=== PATIENT | female | born 1985 | race Caucasian/White ===

== ENCOUNTER 2018-01-17 11:56 | Emergency (ER) | payer BC, OTHER ==
[2018-01-17] MEDS ORDERED: cefTRIAXone 1,000 MG in Lidocaine 1% 4 ML IM ONE (12:20)
[2018-01-17] MEDS ORDERED: Sulfamethoxazole/Trimethoprim 800-160 MG Tab PO ONE (12:22)
--- NOTE | 2018-01-17 12:27 | EDM.PDOC ---
ED HPI GENERAL MEDICAL PROBLEM - General Chief Complaint: Lower Extremity Injury/Pain Stated Complaint: RT FOOT HURTS Time Seen by Provider: 01/17/18 11:58 Source of Information: Reports: Patient History Limitations: Reports: No Limitations - History of Present Illness INITIAL COMMENTS - FREE TEXT/NARRATIVE: HISTORY AND PHYSICAL: History of present illness: Patient is a 32-year-old female who presents to the emergency room today with complaints of pain, swelling and erythema to the right foot. Patient was in [place] surfing on Wednesday (01/11/2018) and had stepped on a sea urchin. She states that a nurse friend had removed several of the spines from the bottom of her foot. Several days later she noted that there were still some of the spines inbedded to the bottom of the foot; subsequently another medical friend removed several more spines. She presents today as she feels that she has increased redness and swelling over the past 2 days. She does note that there is a small circular enlarged lymph node to her right groin area. She denies any recent fever, chills, chest pain, shortness of breath. Denies any abdominal pain, nausea, vomiting, diarrhea or constipation. Tdap is up-to-date. Review of systems: As per history of present illness and below otherwise all systems reviewed and negative. Past medical history: As per history of present illness and as reviewed below otherwise noncontributory. Surgical history: As per history of present illness and as reviewed below otherwise noncontributory. Social history: No reported history of drug or alcohol abuse. Family history: As per history of present illness and as reviewed below otherwise noncontributory. Physical exam: General: Well-developed and well-nourished 32-year-old female. Alert and oriented. Nontoxic appearing and in no acute distress. HEENT: Atraumatic, normocephalic, pupils equal and reactive bilaterally, negative for conjunctival pallor or scleral icterus, mucous membranes moist, throat clear, neck supple, nontender, trachea midline. No drooling or trismus noted. No meningeal signs Lungs: Clear to auscultation, breath sounds equal bilaterally, chest nontender. Heart: S1S2, regular rate and rhythm without overt murmur Abdomen: Soft, nondistended, nontender. Negative for masses or hepatosplenomegaly. Negative for costovertebral tenderness. Pelvis: Stable nontender. Genitourinary: Deferred. Rectal: Deferred. Skin: There are multiple puncture sites to the great toe, base of the 1, 2, and 3rd digits. Erythema and soft tissue swelling to the anterior portion of the foot. Strong pedal pulses. Otherwise skin is intact, warm, dry. No lesions or rashes noted. Extremities: Atraumatic, negative for cords or calf pain. Neurovascular unremarkable. Neuro: Awake, alert, oriented. Cranial nerves II through XII unremarkable. Cerebellum unremarkable. Motor and sensory unremarkable throughout. Exam nonfocal. Notes: Vital signs were reviewed by me. She has not had any fever or chills. Patient has been ambulating/wt bearing on the involved lower extremity that has urchin spines. There are several puncture sites that involve the great toe, base of the 1, 2,3 toes (some of these were previously extracted - she is unsure of how many are left in the foot pad). I am unable to feel them when palpating the foot. Will obtain an x-ray and labs at this time. Patient was placed in a gown and her skin was assessed in greater detail. She states she is unable to feel the lymph node she thought she felt in her right thigh. The erythema is localized to the anterior portion of the right foot and does not extend past the ankle. The margins were marked with a surgical marker. I did discuss in great length signs and symptoms that would prompt her to return to the emergency room immediately. She will return tomorrow for reevaluation to make sure she is improving. We did discuss that if she does not improve we would likely have to admit her for IV antibiotics. Her lab work is currently within normal limits. Prescription for Bactrim DS and [place]. We'll see her tomorrow morning for repeat evaluation. I will also refer her to podiatry for further evaluation and management, have her follow up later this week. Agreeable to plan of care. And she denies any further questions or concerns at this time. Diagnostics: CBC, CMP, Blood Culture Therapeutics: Bactrim DS, Rocephin IV, NS 500 Impression: Cellulitis, right foot Plan: 1. Keep the area clean and dry. Rest, ice and elevate 2. Continue to monitor the area for signs of worsening infection as we discussed. Signs and symptoms include but are not limited to: Increased redness , increased swelling, increased pain, fever and chills. 3. Please return tomorrow for reevaluation. As we discussed if you are not improving you may need to be admitted and IV antibiotics. 4. Tylenol and/or ibuprofen as needed for pain management. Please take the prescribed pain medication as directed. This medication may cause drowsiness so do not take it while driving or needing to be functioning outside of the house. 5. Follow[facility] with [facility] and [facility]iatry in the next couple days. Return to the ED as needed and as discussed. Definitive disposition and diagnosis as appropriate pending reevaluation and review of above. Right Foot Pain Score (Numeric/FACES): 8 - Related Data Allergies Allergy/AdvReac Type Severity Reaction Status Date / Time No Known Allergies Allergy Verified 01/17/18 12:21 Home Meds: Home Meds Dextroamphetamine/Amphetamine [Adderall] 30 mg PO BID 01/17/18 [History] Past Medical History Musculoskeletal History: Reports: Fracture - Past Surgical History GI Surgical History: Reports: Bariatric Procedure, Other (See Below) Other GI Surgeries/Procedures: Gastric Sleeve Social & Family History - Family History Family Medical History: Noncontributory - Tobacco Use Smoking Status *Q: Never Smoker Second Hand Smoke Exposure: No - Recreational Drug Use Recreational Drug Use: No Review of Systems - Review of Systems Review Of Systems: ROS reveals no pertinent complaints other than HPI. ED EXAM, GENERAL - Physical Exam Exam: See Below (See dictation) Course - Vital Signs Last Recorded V/S: Last Vital Signs Temp 98.0 F 01/17/18 12:22 Pulse 73 01/17/18 14:08 Resp 18 01/17/18 14:08 BP 142/85 H 01/17/18 14:08 Pulse Ox 100 01/17/18 14:08 - Orders/Labs/Meds Orders: Active Orders 24 hr Category Date Time Status CULTURE BLOOD [BC] Stat Lab 01/17/18 12:42 Received CULTURE BLOOD [BC] Stat Lab 01/17/18 12:52 Received Blood Culture x2 Reflex Set [OM.PC] Stat Oth 01/17/18 12:22 Ordered Labs: Laboratory Tests 01/17/18 01/17/18 Range/Units 12:48 13:26 WBC 7.56 (4.0-11.0) K/uL RBC 4.40 (4.30-5.90) M/uL Hgb 13.3 (12.0-16.0) g/dL Hct 38.8 (36.0-46.0) % MCV 88.2 (80.0-98.0) fL MCH 30.2 (27.0-32.0) pg MCHC 34.3 (31.0-37.0) g/dL RDW Std Deviation 40.1 (28.0-62.0) fl RDW Coeff of Myron 12 (11.0-15.0) % Plt Count 221 (150-400) K/uL MPV 10.60 (7.40-12.00) fL Neut % (Auto) 66.4 (48.0-80.0) % Lymph % (Auto) 17.3 (16.0-40.0) % [place] % (Auto) 13.1 (0.0-15.0) % Eos % (Auto) 2.4 (0.0-7.0) % Baso % (Auto) 0.8 (0.0-1.5) % Neut # (Auto) 5.0 (1.4-5.7) K/uL Lymph # (Auto) 1.3 (0.6-2.4) K/uL [place] # (Auto) 1.0 H (0.0-0.8) K/uL Eos # (Auto) 0.2 (0.0-0.7) K/uL Baso # (Auto) 0.1 (0.0-0.1) K/uL Nucleated RBC % 0.0 /100WBC Nucleated RBCs # 0 K/uL Sodium 140 (136-145) mmol/L Potassium 3.8 (3.5-5.1) mmol/L Chloride 106 (98-107) mmol/L Carbon Dioxide 25.4 (21.0-32.0) mmol/L BUN 8 (7.0-18.0) mg/dL Creatinine 0.9 (0.6-1.0) mg/dL Est Cr Clr Drug Dosing 94.65 mL/min Estimated GFR (MDRD) > 60.0 ml/min Glucose 92 (74-106) mg/dL Calcium 8.8 (8.5-10.1) mg/dL Total Bilirubin 0.3 (0.2-1.0) mg/dL AST 21 (15-37) IU/L ALT 29 (14-63) IU/L Alkaline Phosphatase 48 (46-116) U/L Total Protein 7.1 (6.4-8.2) g/dL Albumin 3.7 (3.4-5.0) g/dL Globulin 3.4 (2.0-3.5) g/dL Albumin/Globulin Ratio 1.1 L (1.3-2.8) Meds: Medications Discontinued Medications Generic Name Dose Route Start Last Admin Trade Name Freq PRN Reason Stop Dose Admin Ceftriaxone Sodium 1,000 mg/ 4 mls @ 4 mls/sec 01/17/18 12:20 01/17/18 13:16 Lidocaine HCl IM 01/17/18 12:21 Not Given ONETIME ONE Vancomycin HCl 1 gm/ Sodium 250 mls @ 250 mls/hr 01/17/18 12:20 01/17/18 13: 18 Chloride IV 01/17/18 13:19 Not Given ONETIME ONE Ceftriaxone Sodium/Dextrose 1 50 mls @ 100 mls/hr 01/17/18 13:01 01/17/18 13: 08 gm/ Premix IV 01/17/18 13:30 100 mls/hr ONETIME ONE Administration Sodium Chloride 500 mls @ 999 mls/hr 01/17/18 13:15 01/17/18 13:08 Normal Saline IV 999 mls/hr STAT ROMIE Administration Trimethoprim/Sulfamethoxazole 1 tab 01/17/18 12:22 01/17/18 13:08 Septra Ds PO 01/17/18 12:23 1 tab ONETIME ONE Administration Departure - Departure Time of Disposition: 16:15 Disposition: Home, Self-Care 01 Clinical Impression: Cellulitis Qualifiers: Site of cellulitis: extremity Site of cellulitis of extremity: lower extremity Laterality: right Qualified Code(s): L03.115 - Cellulitis of right lower limb - Discharge Information Instructions: Cellulitis, Adult, [id number] Referrals: Nicolasa Vasquez NP [Primary Care Provider] - Forms: ED Department Discharge Additional Instructions: The following information is given to patients seen in the emergency department who are being discharged to home. This information is to outline your options for follow-up care. We provide all patients seen in our emergency department with a follow-up referral. The need for follow-up, as well as the timing and circumstances, are variable depending upon the specifics of your emergency department visit. If you don't have a primary care physician on staff, we will provide you with a referral. We always advise you to contact your personal physician following an emergency department visit to inform them of the circumstance of the visit and for follow-up with them and/or the need for any referrals to a consulting specialist. The emergency department will also refer you to a specialist when appropriate. This referral assures that you have the opportunity for follow-up care with a specialist. All of these measure are taken in an effort to provide you with optimal care, which includes your follow-up. Under all circumstances we always encourage you to contact your private physician who remains a resource for coordinating your care. When calling for follow-up care, please make the office aware that this follow-up is from your recent emergency room visit. If for any reason you are refused follow-up, please contact the [facility] Emergency Department at and asked to speak to the emergency department charge nurse. [facility] [address] [place] [id number] [address] 1. Keep the area clean and dry. Rest, ice and elevate 2. Continue to monitor the area for signs of worsening infection as we discussed. Signs and symptoms include but are not limited to: Increased redness , increased swelling, increased pain, fever and chills. 3. Please return tomorrow for reevaluation. As we discussed if you are not improving you may need to be admitted and IV antibiotics. 4. Tylenol and/or ibuprofen as needed for pain management. Please take the prescribed pain medication as directed. This medication may cause drowsiness so do not take it while driving or needing to be functioning outside of the house. 5. Follow-up with your [facility] doctor and podiatry in the next couple days. Return to the ED as needed and as discussed. - My Orders Last 24 Hours: My Active Orders 01/17/18 12:22 Blood Culture x2 Reflex Set [OM.PC] Stat 01/17/18 12:42 CULTURE BLOOD [BC] Stat 01/17/18 12:52 CULTURE BLOOD [BC] Stat - Assessment/Plan Last 24 Hours: My Active Orders 01/17/18 12:22 Blood Culture x2 Reflex Set [OM.PC] Stat 01/17/18 12:42 CULTURE BLOOD [BC] Stat 01/17/18 12:52 CULTURE BLOOD [BC] Stat
[2018-01-17] MEDS ORDERED: cefTRIAXone 1 GM in Premix Bag 1 BAG IV ONE (13:01)
[2018-01-17] MEDS ORDERED: Sodium Chloride 0.9% 500 ML IV SCH (13:15)
--- NOTE | 2018-01-17 13:30 | CR ---
EXAMINATION: Right foot HISTORY: Pain COMPARISON: None TECHNIQUE: 2 views FINDINGS/IMPRESSION: There is no acute osseous abnormality, dislocation, or fracture. Small linear de nsities project near the first and second digits with mild adjacent soft tissue swelling. Bone minera lization and joint spaces are otherwise preserved.
[2018-01-17 13:58] LABS: CHLORIDE,CL 106 mmol/L (98-107); SODIUM,NA 140 mmol/L (136-145)
== END 2018-01-17 14:10 | disposition home or self-care (01) ==
LOC: EDBD → MW.ED 11:56
DX: L03.115 Cellulitis of right lower limb (principal)
CPT/HCPCS: 36415; 73620; 80053; 85025; 87040; 96365; 99283; A9270; J0696; J7040

== ENCOUNTER 2018-01-18 13:44 | Observation (INO) | payer BC, OTHER ==
[2018-01-18] MEDS ORDERED: Sodium Chloride 0.9% 2.5 ML Syringe FLUSH PRN (14:04)
[2018-01-18] MEDS ORDERED: Sodium Chloride 0.9% 10 ML Syringe FLUSH PRN (14:04)
--- NOTE | 2018-01-18 14:04 | EDM.PDOC ---
ED HPI GENERAL MEDICAL PROBLEM - General Chief Complaint: Skin Complaint Stated Complaint: RIGHT FOOT PAIN Time Seen by Provider: 01/18/18 13:46 Source of Information: Reports: Patient History Limitations: Reports: No Limitations - History of Present Illness INITIAL COMMENTS - FREE TEXT/NARRATIVE: History of present illness: []Patient was in [place] on the January 11 and stepped on a see her chin. He was seen in the ED yesterday for cellulitis of her foot x-ray showed 2 areas of small spines from the chin embedded in her foot with no palpable foreign bodies at the skin surface. She was put on Rocephin and put on Bactrim and is here for follow-up. She states that the redness in her foot is deeper red and now spreading to the bottom of her foot. Review of systems: As per history of present illness and below otherwise all systems reviewed and negative. Past medical history: As per history of present illness and as reviewed below otherwise noncontributory. Surgical history: As per history of present illness and as reviewed below otherwise noncontributory. Social history: No reported history of drug or alcohol abuse. Family history: As per history of present illness and as reviewed below otherwise noncontributory. Physical exam: General: Well developed, well nourished in NAD HEENT: Atraumatic, normocephalic, pupils reactive, negative for conjunctival pallor or scleral icterus, mucous membranes moist, throat clear, neck supple, nontender, trachea midline. Lungs: Clear to auscultation, breath sounds equal bilaterally, chest nontender. Heart: S1S2, regular, negative for clicks, rubs, or JVD. Abdomen: Soft, nondistended, nontender. Negative for masses or hepatosplenomegaly. Negative for costovertebral tenderness. Pelvis: Stable nontender. Genitourinary: Deferred. Rectal: Deferred. Extremities: Atraumatic, negative for cords or calf pain. Neurovascular unremarkable. Neuro: Awake, alert, oriented. Cranial nerves II through XII unremarkable. Cerebellum unremarkable. Motor and sensory unremarkable throughout. Exam nonfocal. Diagnostics: []Yesterday patient had x-rays, blood cultures and labs done. CBC today is unchanged Therapeutics: []Patient was given IV Zosyn in the ED Impression: []Cellulitis right foot secondary to stepping on a sea urchin, failed outpatient therapy. Retained foreign bodies in left foot Plan: []Admit for IV antibiotics Definitive disposition and diagnosis as appropriate pending reevaluation and review of above. 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: None Musculoskeletal History: Reports: Fracture Neurological History: Reports: None Psychiatric History: Reports: None Endocrine/Metabolic History: Reports: None Hematologic History: Reports: None Immunologic History: Reports: None Oncologic (Cancer) History: Reports: None Dermatologic History: Reports: None - Infectious Disease History Infectious Disease History: Reports: Chicken Pox - Past Surgical History Head Surgeries/Procedures: Reports: None HEENT Surgical History: Reports: None Cardiovascular Surgical History: Reports: None Respiratory Surgical History: Reports: None GI Surgical History: Reports: Bariatric Procedure, Other (See Below) Other GI Surgeries/Procedures: Gastric Sleeve Female Surgical History: Reports: None Endocrine Surgical History: Reports: None Neurological Surgical History: Reports: None Musculoskeletal Surgical History: Reports: None Oncologic Surgical History: Reports: None Dermatological Surgical History: Reports: None Social & Family History - Family History Family Medical History: Noncontributory - Tobacco Use Smoking Status *Q: Never Smoker Second Hand Smoke Exposure: No - Caffeine Use Caffeine Use: Reports: None - Recreational Drug Use Recreational Drug Use: No ED ROS GENERAL - Review of Systems Review Of Systems: See Below (See history of present illness) ED EXAM, SKIN/RASH Exam: See Below (See history of present illness) Course - Vital Signs Last Recorded V/S: Last Vital Signs Temp 97.5 F 01/18/18 15:40 Pulse 71 01/18/18 15:40 Resp 18 01/18/18 15:40 BP 126/79 01/18/18 15:40 Pulse Ox 100 01/18/18 15:40 - Orders/Labs/Meds Orders: Active Orders 24 hr Category Date Time Status Patient Status [ADT] Stat ADT 01/18/18 14:21 Active Sodium Chloride 0.9% [Saline Flush] Med 01/18/18 14:04 Active 10 ml FLUSH ASDIRECTED PRN Sodium Chloride 0.9% [Saline Flush] Med 01/18/18 14:04 Active 2.5 ml FLUSH ASDIRECTED PRN Saline Lock Insert [OM.PC] Stat Oth 01/18/18 14:04 Ordered Medication Orders Acetaminophen (Tylenol) 650 mg PO Q4H PRN PRN Reason: Pain Lactated Ringer's (Ringers, Lactated) 1,000 mls @ 125 mls/hr IV ASDIRECTED ROMIE Last Admin: 01/18/18 16:54 Dose: 125 mls/hr Clindamycin Phosphate 600 mg/ (Premix) 50 mls @ 92.593 mls/hr IV Q8H ROMIE Doxycycline Hyclate 100 mg/ (Sodium Chloride) 100 mls @ 100 mls/hr IV Q12H ROMIE Levofloxacin/Dextrose 750 mg/ (Premix) 150 mls @ 100 mls/hr IV Q24H ROMIE Morphine Sulfate (Morphine) 2 mg IVPUSH Q2H PRN PRN Reason: Pain Ondansetron HCl (Zofran) 4 mg IVPUSH Q4H PRN PRN Reason: Nausea Oxycodone HCl (Oxycodone) 5 mg PO Q4H PRN PRN Reason: Pain Sodium Chloride (Saline Flush) 10 ml FLUSH ASDIRECTED PRN PRN Reason: Keep Vein Open Sodium Chloride (Saline Flush) 2.5 ml FLUSH ASDIRECTED PRN PRN Reason: Keep Vein Open Meds: Medications Generic Name Dose Route Start Last Admin Trade Name Freq PRN Reason Stop Dose Admin Acetaminophen 650 mg 01/18/18 16:24 Tylenol PO Q4H PRN Pain Lactated Ringer's 1,000 mls @ 125 mls/hr 01/18/18 16:00 01/18/18 16:54 Ringers, Lactated IV 125 mls/hr ASDIRECTED ROMIE Administration Clindamycin Phosphate 600 mg/ 50 mls @ 92.593 mls/hr 01/18/18 16:30 Premix IV Q8H ROMIE Doxycycline Hyclate 100 mg/ 100 mls @ 100 mls/hr 01/18/18 18:30 Sodium Chloride IV Q12H ROMIE Levofloxacin/Dextrose 750 mg/ 150 mls @ 100 mls/hr 01/18/18 17:30 Premix IV Q24H ROMIE Morphine Sulfate 2 mg 01/18/18 16:46 Morphine IVPUSH Q2H PRN Pain Ondansetron HCl 4 mg 01/18/18 15:29 Zofran IVPUSH Q4H PRN Nausea Oxycodone HCl 5 mg 01/18/18 15:58 Oxycodone PO Q4H PRN Pain Sodium Chloride 10 ml 01/18/18 14:04 Saline Flush FLUSH ASDIRECTED PRN Keep Vein Open Sodium Chloride 2.5 ml 01/18/18 14:04 Saline Flush FLUSH ASDIRECTED PRN Keep Vein Open Discontinued Medications Generic Name Dose Route Start Last Admin Trade Name Freq PRN Reason Stop Dose Admin Hydrocodone Bitart/Acetaminophen 1 - 2 tab 01/18/18 15:29 [place] 325-5 Mg PO Q4H PRN Pain (moderate 4-6) Piperacillin Sod/Tazobactam 100 mls @ 100 mls/hr 01/18/18 14:21 01/18/18 14: 40 Sod 4.5 gm/ Sodium Chloride IV 01/18/18 15:20 100 mls/hr ONETIME ONE Administration Ketorolac Tromethamine 30 mg 01/18/18 14:58 01/18/18 15:05 Toradol IVPUSH 01/18/18 14:59 30 mg ONETIME ONE Administration Lorazepam 0.25 mg 01/18/18 16:46 Ativan IVPUSH 01/18/18 16:47 ONETIME ONE Departure - Departure Time of Disposition: 17:08 Disposition: Refer to Observation Condition: Good Clinical Impression: Cellulitis of right foot - Discharge Information - My Orders Last 24 Hours: My Active Orders 01/18/18 14:04 Sodium Chloride 0.9% [Saline Flush] 10 ml FLUSH ASDIRECTED PRN Sodium Chloride 0.9% [Saline Flush] 2.5 ml FLUSH ASDIRECTED PRN Saline Lock Insert [OM.PC] Stat 01/18/18 14:21 Patient Status [ADT] Stat - Assessment/Plan Last 24 Hours: My Active Orders 01/18/18 14:04 Sodium Chloride 0.9% [Saline Flush] 10 ml FLUSH ASDIRECTED PRN Sodium Chloride 0.9% [Saline Flush] 2.5 ml FLUSH ASDIRECTED PRN Saline Lock Insert [OM.PC] Stat 01/18/18 14:21 Patient Status [ADT] Stat
[2018-01-18] MEDS ORDERED: Piperacillin/Tazobactam 4.5 GM in Sodium Chloride 0.9% 100 ML IV ONE (14:21)
[2018-01-18] MEDS ORDERED: Ketorolac 30 MG/ML SDV IVPUSH ONE (14:58)
[2018-01-18] MEDS ORDERED: Acetaminophen/HYDROcodone 325-5 MG Tab PO PRN (15:29)
--- NOTE | 2018-01-18 15:29 | PCM.HP ---
H&P History of Present Illness - General Date of Service: 01/18/18 Admit Problem/Dx: Admission Diagnosis/Problem Admission Diagnosis/Problem Cellulitis Source of Information: Patient History Limitations: Reports: No Limitations - History of Present Illness Initial Comments - Free Text/Narative: This32 year old female with little significant pmh presented to the ED today when R foot cellulitis worsened. She reports she was in [place] last week and on January 11 she was surfing. She fell off the board and stepped on something sharp. She felt it was a rock and kept on with her day, until she kept having pain with ambulation. A guide there looked at her foot and realized she had stepped on a sea urchin and had multiple spines protruding from her foot. He removed most of the surface spines. A few days later, she had more spines which were visible and a friend who is a nurse removed these. Of note, patient learned later that the area she was swimming in had recently had a contamination with buckle sewer machine water, she reports the water appeared clean. Yesterday she noticed worsening pain and redness and came to the ED. She received a R foot Xray which showed small linear densities projecting near the first and second toes with mild adjacent soft tissue swelling. She was given Rocephin IV and sent home with Bactrim and [place]. She reports the pain and swelling worsened overnight, but the redness nearly remained the same until this afternoon. [facility] ED for further evaluation. She denies fevers, chills, chest pain or palpitations. She reports some shortness of breath with anxiety, but feels ok now. She denies abdominal pain or urinary symptoms. She did report some diarrhea, which has now nearly resolved. She quit smoking 4 years ago, denies recreational drug use and social alcohol use. In the ED No leukocytosis noted, BUN 8 and Cr 1.1. She was given Zosyn IV in the ED as well as Toradol for pain. Upon admission I spoke with Dr Hoang, Infectious disease at [facility] regarding cellulitis secondary to sea urchin puncture. He agreed with suggested treatment for secondary skin infection with Clindamycin and Levaquin along with Doxycycline due to sea water exposure. He also recommended I&D to remove retained spines and clean wound bed extensively. He also recommended to hold onto wound cultures obtained in surgery for up to 2 weeks to rule out a Mycobacterium which grows slowly. I then spoke with Dr Ferreira regarding possible I&D as per recommended by Dr Hoang. He will see patient and plans for I&D this evening. She double checked her Tdap and she received this in 2014. right foot Pain Score (Numeric/FACES): 3 - Related Data Allergies/Adverse Reactions: Allergies Allergy/AdvReac Type Severity Reaction Status Date / Time No Known Allergies Allergy Verified 01/18/18 13:54 Home Medications: Home Meds Dextroamphetamine/Amphetamine [Adderall] 30 mg PO BID 01/17/18 [History] Past Medical History HEENT History: Reports: None Cardiovascular History: Reports: None. Denies: CAD, High Cholesterol, Hypertension, [place] Respiratory History: Reports: None. Denies: Asthma, COPD Gastrointestinal History: Reports: None. Denies: GERD, GI Bleed Genitourinary History: Reports: None. Denies: Acute Renal Failure SHOW DOG TRAINER History: Reports: None Musculoskeletal History: Reports: Fracture Neurological History: Reports: None. Denies: CVA, TIA Psychiatric History: Reports: Anxiety. Denies: Depression Endocrine/Metabolic History: Reports: None. Denies: Diabetes, Type II Hematologic History: Reports: None Immunologic History: Reports: None Oncologic (Cancer) History: Reports: None Dermatologic History: Reports: None - Infectious Disease History Infectious Disease History: Reports: Chicken Pox - Past Surgical History Head Surgeries/Procedures: Reports: None HEENT Surgical History: Reports: None Cardiovascular Surgical History: Reports: None Respiratory Surgical History: Reports: None GI Surgical History: Reports: Bariatric Procedure, Other (See Below) Other GI Surgeries/Procedures: Gastric Sleeve Female Surgical History: Reports: None Endocrine Surgical History: Reports: None Neurological Surgical History: Reports: None Musculoskeletal Surgical History: Reports: None Oncologic Surgical History: Reports: None Dermatological Surgical History: Reports: None Social & Family History - Family History Family Medical History: Noncontributory - Tobacco Use Smoking Status *Q: Never Smoker Second Hand Smoke Exposure: No - Caffeine Use Caffeine Use: Reports: None - Alcohol Use Alcohol Use Frequency: Socially - Recreational Drug Use Recreational Drug Use: No - Living Situation & Occupation Living situation: Reports: Occupation: Employed H&P Review of Systems - Review of Systems: Review Of Systems: See Below General: Reports: No Symptoms. Denies: Fever, Chills, Malaise, Weakness HEENT: Reports: No Symptoms. Denies: Headaches, Sinus Congestion, Sore Throat, Visual Changes Pulmonary: Reports: No Symptoms. Denies: Shortness of Breath Cardiovascular: Reports: No Symptoms. Denies: Chest Pain, Palpitations, Edema Gastrointestinal: Reports: No Symptoms. Denies: Abdominal Pain, Black Stool, Bloody Stool, Hematochezia, Nausea, Vomiting Genitourinary: Reports: No Symptoms. Denies: Dysuria, Frequency, Burning Musculoskeletal: Reports: Foot Pain (R foot pain, tolerable currently) Skin: Reports: Wound (R plantar surface of foot with redness extending to dorsum of R foot.) Neurological: Reports: No Symptoms Hematologic/Lymphatic: Reports: No Symptoms Immunologic: Reports: No Symptoms Exam - Exam Exam: See Below - Vital Signs Vital Signs: Last Vital Signs Temp 98.8 F 01/18/18 15:21 Pulse 77 01/18/18 15:21 Resp 18 01/18/18 15:21 BP 111/73 01/18/18 15:21 Pulse Ox 100 01/18/18 15:21 Weight: 68.039 kg - Exam General: Alert, Oriented, Cooperative HEENT: Conjunctiva Clear, Mucosa Moist & [place], Pupils Equal Neck: Supple Lungs: Clear to Auscultation, Normal Respiratory Effort Cardiovascular: Regular Rate, Regular Rhythm, Normal S1, Normal S2. No: Systolic Murmur GI/Abdominal Exam: Normal Bowel Sounds, Soft, Non-Tender, No Distention Back Exam: Normal Inspection, Full Range of Motion Extremities: Normal Range of Motion, Non-Tender, Pedal Edema (R foot) Skin: Wound (Multiple puncture wounds to plantar surface of R foot, with edema and erythema to pad of foot, most noticiely in between great toe and second toe. No extreme tenderness noted with palpation, but recently receive pain medication. Erythema slightly extending skin marking from 6/25 laterally and medially. non pitting edema +1 to entire R foot.) Neuro Extensive - Mental Status: Alert, Oriented x3, Normal Mood/Affect Neuro Extensive - Motor, Sensory, Reflexes: CN II-XII Intact Psychiatric: Alert, Normal Affect, Normal Mood - Patient Data Lab Results Last 24 hrs: Laboratory Results - last 24 hr 01/18/18 Range/Units 14:40 WBC 7.32 (4.0-11.0) K/uL RBC 4.36 (4.30-5.90) M/uL Hgb 13.1 (12.0-16.0) g/dL Hct 38.4 (36.0-46.0) % MCV 88.1 (80.0-98.0) fL MCH 30.0 (27.0-32.0) pg MCHC 34.1 (31.0-37.0) g/dL RDW Std Deviation 39.9 (28.0-62.0) fl RDW Coeff of Myron 12 (11.0-15.0) % Plt Count 243 (150-400) K/uL MPV 10.10 (7.40-12.00) fL Neut % (Auto) 64.0 (48.0-80.0) % Lymph % (Auto) 20.1 (16.0-40.0) % [place] % (Auto) 11.2 (0.0-15.0) % Eos % (Auto) 3.7 (0.0-7.0) % Baso % (Auto) 1.0 (0.0-1.5) % Neut # (Auto) 4.7 (1.4-5.7) K/uL Lymph # (Auto) 1.5 (0.6-2.4) K/uL [place] # (Auto) 0.8 (0.0-0.8) K/uL Eos # (Auto) 0.3 (0.0-0.7) K/uL Baso # (Auto) 0.1 (0.0-0.1) K/uL Nucleated RBC % 0.0 /100WBC Nucleated RBCs # 0 K/uL Result Diagrams: 01/18/18 14:40 01/18/18 14:40 - Problem List (1) Cellulitis SNOMED Code(s): 817039543 ICD Code: L03.90 - CELLULITIS, UNSPECIFIED Status: Acute Current Visit: No Qualifiers: Site of cellulitis: extremity Site of cellulitis of extremity: lower extremity Laterality: right Qualified Code(s): L03.115 - Cellulitis of right lower limb Problem List Initiated/Reviewed/Updated: Yes Orders Last 24hrs: Active Orders 24 hr Category Date Time Status Patient Status [ADT] Stat ADT 01/18/18 14:21 Active BMP [BASIC METABOLIC PANEL,BMP] [CHEM] Routine Lab 01/18/18 15:28 Ordered Sodium Chloride 0.9% [Saline Flush] Med 01/18/18 14:04 Active 10 ml FLUSH ASDIRECTED PRN Sodium Chloride 0.9% [Saline Flush] Med 01/18/18 14:04 Active 2.5 ml FLUSH ASDIRECTED PRN Saline Lock Insert [OM.PC] Stat Oth 01/18/18 14:04 Ordered Medication Orders Sodium Chloride (Saline Flush) 10 ml FLUSH ASDIRECTED PRN PRN Reason: Keep Vein Open Sodium Chloride (Saline Flush) 2.5 ml FLUSH ASDIRECTED PRN PRN Reason: Keep Vein Open Assessment/Plan Comment:: This 32 year old female admitted for cellulitis to R foot secondary to sea urchin puncture. 1. Cellulitis to R foot: With retained sea urchin spines to Great toe and second toe. As noted in HPI, consulted over the phone with Dr Hoang, Infectious disease, who agrees with treatment of Clindamycin, Levaquin and Doxycycline. Dr Ferreira, podiatry consulted for I&D and removal of retained spines. To OR this evening. patient and at bedside aware and are agreeable. Patient very anxious regarding OR, asking for something to calm her nerves. Will give Ativan 0.25mg IV and monitor. Has not eaten since around 1145 this afternoon. BC from 01/17 ED visit so far are negative x [address] Ferreira to obtain cultures from OR. Puncture sites have no drainage to culture. She is to keep R foot elevated as much as possible. She is of appropriate surgical risk for I&D this evening. VTE prophylaxis: SCDs Dispo: 1-3 days pending improvement.
[2018-01-18] MEDS ORDERED: LORazepam 2 MG/ML SDV IVPUSH ONE (16:46)
[2018-01-18] MEDS: Lactated Ringers 1,000 ML IV SCH ×2 (16:54→22:00)
[2018-01-18] MEDS: Clindamycin Phosphate in D5W 600 MG in Premix Bag 1 BAG IV SCH ×4 (17:11→23:54)
[2018-01-18] MEDS: Doxycycline 100 MG in Sodium Chloride 0.9% 100 ML IV SCH (17:33)
[2018-01-18] MEDS ORDERED: Midazolam 1 MG/ML 2 ML SDV ONE (18:13)
[2018-01-18] MEDS ORDERED: Lidocaine 2% 5 ML SDV ONE (18:13)
[2018-01-18] MEDS ORDERED: Propofol 200 MG/20 ML SDV ONE (18:13)
[2018-01-18] MEDS ORDERED: Ondansetron 4 MG/2 ML SDV ONE (18:13)
[2018-01-18] MEDS ORDERED: fentaNYL 250 MCG/5 ML SDV ONE (18:14)
--- NOTE | 2018-01-18 18:34 | PCM.PREANE ---
Preanesthetic Assessment - Procedure Proposed Procedure: I&D of R) foot - Physical Assessment NPO Status Date: 01/18/18 NPO Status Time: 11:45 O2 Sat by Pulse Oximetry: 100 Respiratory Rate: 18 Vital Signs: Last Vital Signs Temp 36.4 C 01/18/18 15:40 Pulse 71 01/18/18 15:40 Resp 18 01/18/18 15:40 BP 126/79 01/18/18 15:40 Pulse Ox 100 01/18/18 15:40 Height: 5 ft 9 in Weight: 68.039 kg ASA Class: 1E Mental Status: Alert & Oriented x3 Airway Class: Mallampati = 1 Dentition: Reports: Normal Dentition Thyro-Mental Finger Breadths: 3 Mouth Opening Finger Breadths: 3 ROM/Head Extension: Full - Lab Values: Laboratory Last Values WBC 7.32 K/uL (4.0-11.0) 01/18/18 14:40 RBC 4.36 M/uL (4.30-5.90) 01/18/18 14:40 Hgb 13.1 g/dL (12.0-16.0) 01/18/18 14:40 Hct 38.4 % (36.0-46.0) 01/18/18 14:40 MCV 88.1 fL (80.0-98.0) 01/18/18 14:40 MCH 30.0 pg (27.0-32.0) 01/18/18 14:40 MCHC 34.1 g/dL (31.0-37.0) 01/18/18 14:40 RDW Std Deviation 39.9 fl (28.0-62.0) 01/18/18 14:40 RDW Coeff of Myron 12 % (11.0-15.0) 01/18/18 14:40 Plt Count 243 K/uL (150-400) 01/18/18 14:40 MPV 10.10 fL (7.40-12.00) 01/18/18 14:40 Neut % (Auto) 64.0 % (48.0-80.0) 01/18/18 14:40 Lymph % (Auto) 20.1 % (16.0-40.0) 01/18/18 14:40 [place] % (Auto) 11.2 % (0.0-15.0) 01/18/18 14:40 Eos % (Auto) 3.7 % (0.0-7.0) 01/18/18 14:40 Baso % (Auto) 1.0 % (0.0-1.5) 01/18/18 14:40 Neut # (Auto) 4.7 K/uL (1.4-5.7) 01/18/18 14:40 Lymph # (Auto) 1.5 K/uL (0.6-2.4) 01/18/18 14:40 [place] # (Auto) 0.8 K/uL (0.0-0.8) 01/18/18 14:40 Eos # (Auto) 0.3 K/uL (0.0-0.7) 01/18/18 14:40 Baso # (Auto) 0.1 K/uL (0.0-0.1) 01/18/18 14:40 Nucleated RBC % 0.0 /100WBC 01/18/18 14:40 Nucleated RBCs # 0 K/uL 01/18/18 14:40 Sodium 141 mmol/L (136-145) 01/18/18 14:40 Potassium 3.8 mmol/L (3.5-5.1) 01/18/18 14:40 Chloride 106 mmol/L (98-107) 01/18/18 14:40 Carbon Dioxide 23.2 mmol/L (21.0-32.0) 01/18/18 14:40 BUN 8 mg/dL (7.0-18.0) 01/18/18 14:40 Creatinine 1.1 mg/dL (0.6-1.0) H 01/18/18 14:40 Est Cr Clr Drug Dosing 77.44 mL/min 01/18/18 14:40 Estimated GFR (MDRD) 57.9 ml/min 01/18/18 14:40 Glucose 96 mg/dL (74-106) 01/18/18 14:40 Calcium 9.0 mg/dL (8.5-10.1) 01/18/18 14:40 HCG, Qual NEGATIVE (NEG) 01/18/18 16:22 - Allergies Allergies/Adverse Reactions: Allergies Allergy/AdvReac Type Severity Reaction Status Date / Time No Known Allergies Allergy Verified 01/18/18 13:54 - Blood Blood Available: No - Acknowledgements Anesthesia Type Planned: General Anesthesia Pt an Appropriate Candidate for the Planned Anesthesia: Yes Alternatives and Risks of Anesthesia Discussed w Pt/Guardian: Yes Pt/Guardian Understands and Agrees with Anesthesia Plan: Yes PreAnesthesia Questionnaire HEENT History: Reports: None Cardiovascular History: Reports: None Respiratory History: Reports: None Gastrointestinal History: Reports: None Genitourinary History: Reports: None TEST RIDER History: Reports: None Musculoskeletal History: Reports: Fracture Neurological History: Reports: None Psychiatric History: Reports: None Endocrine/Metabolic History: Reports: None Hematologic History: Reports: None Immunologic History: Reports: None Oncologic (Cancer) History: Reports: None Dermatologic History: Reports: None - Infectious Disease History Infectious Disease History: Reports: Chicken Pox - Past Surgical History Head Surgeries/Procedures: Reports: None HEENT Surgical History: Reports: None Cardiovascular Surgical History: Reports: None Respiratory Surgical History: Reports: None GI Surgical History: Reports: Bariatric Procedure, Other (See Below) Other GI Surgeries/Procedures: Gastric Sleeve Female Surgical History: Reports: None Endocrine Surgical History: Reports: None Neurological Surgical History: Reports: None Musculoskeletal Surgical History: Reports: None Oncologic Surgical History: Reports: None Dermatological Surgical History: Reports: None - SUBSTANCE USE Smoking Status *Q: Never Smoker Second Hand Smoke Exposure: No Recreational Drug Use History: No - HOME MEDS Home Medications: Home Meds Dextroamphetamine/Amphetamine [Adderall] 30 mg PO BID 01/17/18 [History] - CURRENT (IN HOUSE) MEDS Current Meds: Current Medications Acetaminophen (Tylenol) 650 mg PO Q4H PRN PRN Reason: Pain Lactated Ringer's (Ringers, Lactated) 1,000 mls @ 125 mls/hr IV ASDIRECTED [facility] Last Admin: 01/18/18 16:54 Dose: 125 mls/hr Clindamycin Phosphate 600 mg/ (Premix) 50 mls @ 92.593 mls/hr IV Q8H [facility] Last Admin: 01/18/18 17:11 Dose: 92.593 mls/hr Doxycycline Hyclate 100 mg/ (Sodium Chloride) 100 mls @ 100 mls/hr IV Q12H [facility] Last Admin: 01/18/18 17:33 Dose: 100 mls/hr Levofloxacin/Dextrose 750 mg/ (Premix) 150 mls @ 100 mls/hr IV Q24H [facility] Morphine Sulfate (Morphine) 2 mg IVPUSH Q2H PRN PRN Reason: Pain Ondansetron HCl (Zofran) 4 mg IVPUSH Q4H PRN PRN Reason: Nausea Oxycodone HCl (Oxycodone) 5 mg PO Q4H PRN PRN Reason: Pain Sodium Chloride (Saline Flush) 10 ml FLUSH ASDIRECTED PRN PRN Reason: Keep Vein Open Sodium Chloride (Saline Flush) 2.5 ml FLUSH ASDIRECTED PRN PRN Reason: Keep Vein Open Discontinued Medications Hydrocodone Bitart/Acetaminophen ([place] 325-5 Mg) 1 - 2 tab PO Q4H PRN PRN Reason: Pain (moderate 4-6) Fentanyl (Sublimaze) Confirm Administered Dose 250 mcg .ROUTE .STK-MED ONE Stop: 01/18/18 18:15 Piperacillin Sod/Tazobactam (Sod 4.5 gm/ Sodium Chloride) 100 mls @ 100 mls/hr IV ONETIME ONE Stop: 01/18/18 15:20 Last Admin: 01/18/18 14:40 Dose: 100 mls/hr Ketorolac Tromethamine (Toradol) 30 mg IVPUSH ONETIME ONE Stop: 01/18/18 14:59 Last Admin: 01/18/18 15:05 Dose: 30 mg Lidocaine (Xylocaine-Mpf 2%) Confirm Administered Dose 5 ml .ROUTE .STK-MED ONE Stop: 01/18/18 18:14 Lorazepam (Ativan) 0.25 mg IVPUSH ONETIME ONE Stop: 01/18/18 16:47 Last Admin: 01/18/18 17:59 Dose: 0.25 mg Midazolam HCl (Versed 1 Mg/Ml) Confirm Administered Dose 2 mg .ROUTE .STK-MED ONE Stop: 01/18/18 18:14 Ondansetron HCl (Zofran) Confirm Administered Dose 4 mg .ROUTE .STK-MED ONE Stop: 01/18/18 18:14 Propofol (Diprivan 20 Ml) Confirm Administered Dose 200 mg .ROUTE .STK-MED ONE Stop: 01/18/18 18:14
[2018-01-18] MEDS ORDERED: Bupivacaine 0.5% 10 ML SDV ONE (18:39)
--- NOTE | 2018-01-18 18:44 | PCM.CONS ---
H&P History of Present Illness - General Date of Service: 01/18/18 Admit Problem/Dx: Admission Diagnosis/Problem Admission Diagnosis/Problem Cellulitis foreign bodies right foot Source of Information: Patient History Limitations: Reports: No Limitations - History of Present Illness Onset of Symptoms: Reports: Sudden Symptom Onset Date: 01/11/18 Duration of Symptoms: Reports: Day(s): Location: Reports: Lower Extremity, Right Quality: Reports: Burning, Sharp Severity: Moderate Improves with: Reports: Immobilization, Medication Worsens with: Reports: None Context: Reports: Trauma, Travel Associated Symptoms: Reports: No Other Symptoms right foot Pain Score (Numeric/FACES): 3 - Related Data Allergies/Adverse Reactions: Allergies Allergy/AdvReac Type Severity Reaction Status Date / Time No Known Allergies Allergy Verified 01/18/18 13:54 Home Medications: Home Meds Dextroamphetamine/Amphetamine [Adderall] 30 mg PO BID 01/17/18 [History] Past Medical History HEENT History: Reports: None Cardiovascular History: Reports: None Respiratory History: Reports: None Gastrointestinal History: Reports: None Genitourinary History: Reports: None BILLING SUPERVISOR History: Reports: None Musculoskeletal History: Reports: Fracture Neurological History: Reports: None Psychiatric History: Reports: None Endocrine/Metabolic History: Reports: None Hematologic History: Reports: None Immunologic History: Reports: None Oncologic (Cancer) History: Reports: None Dermatologic History: Reports: None - Infectious Disease History Infectious Disease History: Reports: Chicken Pox - Past Surgical History Head Surgeries/Procedures: Reports: None HEENT Surgical History: Reports: None Cardiovascular Surgical History: Reports: None Respiratory Surgical History: Reports: None GI Surgical History: Reports: Bariatric Procedure, Other (See Below) Other GI Surgeries/Procedures: Gastric Sleeve Female Surgical History: Reports: None Endocrine Surgical History: Reports: None Neurological Surgical History: Reports: None Musculoskeletal Surgical History: Reports: None Oncologic Surgical History: Reports: None Dermatological Surgical History: Reports: None Social & Family History - Family History Family Medical History: Noncontributory - Tobacco Use Smoking Status *Q: Never Smoker Second Hand Smoke Exposure: No - Caffeine Use Caffeine Use: Reports: None - Recreational Drug Use Recreational Drug Use: No - Living Situation & Occupation Living situation: Reports: Occupation: Employed H&P Review of Systems - Review of Systems: Review Of Systems: See Below General: Reports: No Symptoms HEENT: Reports: No Symptoms Pulmonary: Reports: No Symptoms Cardiovascular: Reports: No Symptoms Gastrointestinal: Reports: No Symptoms Genitourinary: Reports: No Symptoms Musculoskeletal: Reports: Foot Pain Skin: Reports: No Symptoms Psychiatric: Reports: No Symptoms Neurological: Reports: No Symptoms Hematologic/Lymphatic: Reports: No Symptoms Immunologic: Reports: No Symptoms Exam - Exam Exam: See Below - Vital Signs Vital Signs: Last Vital Signs Temp 36.4 C 01/18/18 15:40 Pulse 71 01/18/18 15:40 Resp 18 01/18/18 18:37 BP 126/79 01/18/18 15:40 Pulse Ox 100 01/18/18 18:37 Weight: 68.039 kg - Exam Peripheral Pulses: 2+: Posterior Tibial (L), Posterior Tibial (R), Dorsalis Pedis (L), Dorsalis Pedis (R) Skin: Warm (cellulitis noted to dorsal mid to distal right foot and plantar distal right foot and toes) Physical Exam Comments:: right plantar foot and toes have multiple small entry points consistent with the entry of quills of a sea urchin as reported - Patient Data Lab Results Last 24 hrs: Laboratory Results - last 24 hr 01/18/18 01/18/18 01/18/18 Range/Units 14:40 14:40 16:22 WBC 7.32 (4.0-11.0) K/uL RBC 4.36 (4.30-5.90) M/uL Hgb 13.1 (12.0-16.0) g/dL Hct 38.4 (36.0-46.0) % MCV 88.1 (80.0-98.0) fL MCH 30.0 (27.0-32.0) pg MCHC 34.1 (31.0-37.0) g/dL RDW Std Deviation 39.9 (28.0-62.0) fl RDW Coeff of Myron 12 (11.0-15.0) % Plt Count 243 (150-400) K/uL MPV 10.10 (7.40-12.00) fL Neut % (Auto) 64.0 (48.0-80.0) % Lymph % (Auto) 20.1 (16.0-40.0) % [place] % (Auto) 11.2 (0.0-15.0) % Eos % (Auto) 3.7 (0.0-7.0) % Baso % (Auto) 1.0 (0.0-1.5) % Neut # (Auto) 4.7 (1.4-5.7) K/uL Lymph # (Auto) 1.5 (0.6-2.4) K/uL [place] # (Auto) 0.8 (0.0-0.8) K/uL Eos # (Auto) 0.3 (0.0-0.7) K/uL Baso # (Auto) 0.1 (0.0-0.1) K/uL Nucleated RBC % 0.0 /100WBC Nucleated RBCs # 0 K/uL Sodium 141 (136-145) mmol/L Potassium 3.8 (3.5-5.1) mmol/L Chloride 106 (98-107) mmol/L Carbon Dioxide 23.2 (21.0-32.0) mmol/L BUN 8 (7.0-18.0) mg/dL Creatinine 1.1 H (0.6-1.0) mg/dL Est Cr Clr Drug Dosing 77.44 mL/min Estimated GFR (MDRD) 57.9 ml/min Glucose 96 (74-106) mg/dL Calcium 9.0 (8.5-10.1) mg/dL HCG, Qual NEGATIVE (NEG) Result Diagrams: 01/18/18 14:40 01/18/18 14:40 Consult PN Assessment/Plan (1) Cellulitis of right foot SNOMED Code(s): 126153572 Code(s): L03.115 - CELLULITIS OF RIGHT LOWER LIMB Current Visit: Yes Problem List Initiated/Reviewed/Updated: Yes Plan: 1. Patient examined at bedside and need for surgical removal of foreign bodies discussed. 2. Incision and drainage of infected right foot with removal of foreign bodies planned for tonight. 3. Continue IV antibiotics. 4. Will follow.
[2018-01-18] MEDS: Levofloxacin/Dextrose 5%-Water 750 MG in Premix Bag 1 BAG IV SCH (19:30)
[2018-01-18] MEDS ORDERED: Ketorolac 30 MG/ML SDV ONE (20:32)
[2018-01-18] MEDS ORDERED: fentaNYL 100 MCG/2 ML SDV IVPUSH PRN (20:34)
[2018-01-18] MEDS ORDERED: diphenhydrAMINE 50 MG/ML SDV IVPUSH ONE (21:27)
[2018-01-18] MEDS ORDERED: diphenhydrAMINE 50 MG/ML SDV ONE (21:29)
[2018-01-18] MEDS ORDERED: Scopolamine 1.5 MG Transdermal Patch ONE (21:36)
--- NOTE | 2018-01-18 21:40 | PCM.POSTAN ---
POST ANESTHESIA ASSESSMENT - MENTAL STATUS Mental Status: Alert, Oriented - RESPIRATORY Respiratory Status: Respiratory Rate WNL, Airway Patent, O2 Saturation Stable - CARDIOVASCULAR CV Status: Pulse Rate WNL, Blood Pressure Stable - GASTROINTESTINAL GI Status: No Symptoms Free Text/Narrative:: some nausea scopalamine patch applied. - PAIN Pain Score: 5 - POST OP HYDRATION Hydration Status: Adequate & Stable
[2018-01-18] MEDS: Morphine 2 MG/ML Syringe IVPUSH PRN (22:03)
[2018-01-18] MEDS: Ondansetron 4 MG/2 ML SDV IVPUSH PRN (22:55)
[2018-01-19] MEDS: oxyCODONE 5 MG Tab PO PRN ×6 (00:03→23:00)
--- NOTE | 2018-01-19 02:32 | OR ---
SURGEON: Steven Ferreira DPM DATE OF PROCEDURE: 01/18/2018 IDENTIFICATION: The patient is a 32-year-old female. PREOPERATIVE DIAGNOSIS: Cellulitis with foreign body, right foot. POSTOPERATIVE DIAGNOSIS: Cellulitis with foreign body, right foot. OPERATIVE PROCEDURE: Incision and drainage with removal of foreign body, right foot. HEMOSTASIS: Above ankle midcalf tourniquet inflated to a pressure of 250 mmHg. TOURNIQUET TIME: 80 minutes. PATHOLOGY: Remnants of foreign body believed to be from a sea urchin that the patient reportedly stepped on while in [place] one week ago. MICROBIOLOGY: Swab cultures were taken before and after the procedure. COMPLICATIONS: None seen. MATERIALS: 3-0 Vicryl, 4-0 nylon. INJECTABLES: 10 mL of 0.5% Marcaine plain. JUSTIFICATION FOR PROCEDURE: The patient was admitted in the last day to the [facility] with a red, hot, swollen right foot and notable for multiple scabs from entry points of the quills of the sea urchin that the patient reported stepping on while on vacation in [place] approximately one week ago. While most of the quills were removed soon after the incident, several managed to penetrate deeper into the patient's foot and were not able to be removed. Three of these are apparent on x-ray taken here in [facility]. I was consulted earlier this afternoon regarding the patient and based on review of the foreign bodies appearing on x-ray and history, I agreed to perform surgery this evening. I met with the patient and her prior to proceeding to surgery. Consent has been obtained for incision and drainage. All the patient questions have been answered. No guarantees expressed or implied. PROCEDURE IN DETAIL: The patient was brought from her room to the operating room, placed on the operating table in a supine position, at which time, anesthesia was induced and an aseptic scrub and drape was performed. A tourniquet was affixed to the midcalf area of the patient and was inflated soon after the beginning of the procedure to allow for better visualization of the affected sites. Intraoperative fluoroscopy was used throughout the procedure in order to determine if the foreign bodies could still be visualized, and copious amounts of sterile water was used to flush out the site repeatedly. Two incisions were made, each approximately 2 cm long on the plantar midfoot, running proximally from the bases of the 2nd and 3rd toes. Combination of sharp dissection of the superficial and deep skin and then blunt dissection from that point on was utilized to search for remnants of the foreign bodies and a number of them were identified. However, the quills that were visible on x-ray were not readily identified on dissection in their complete form, but rather in tiny pieces. A number of small pieces were removed and a great number more were flushed out as the procedure proceeded. A small stab incision was made on the dorsal aspect of the right foot, just medial to the base of the 3rd toe, and additional probing was done to allow flushing as well, and flushing was performed repeatedly using an 18-gauge needle both from the plantar incisions and from the dorsal incisions, and I was able to flush from dorsal to plantar and plantar to dorsal removing further debris. The small stacks and remnants that we were able to identify were sent to pathology for gross and histologic examination. At the conclusion of the procedure, the intraoperative fluoroscopy did not reveal any obvious foreign bodies, and the incision sites were closed as there was no tunneling noted throughout the procedure and no purulent drainage other than at the very beginning of the procedure at one site. The patient will be carefully monitored for any return of symptoms and will remain on the combination of the three antibiotics, clindamycin, Levaquin, and doxycycline. The tourniquet was deflated at a time of 80 minutes. The incision sites were covered with Betadine-soaked Xeroform gauze, followed by fluff gauze, Kerlix roll, and secured with an Scot bandage. The patient will be followed and if stable, may be discharged as early as tomorrow. I will be in contact with the hospitalist and staff regarding that. MARIAELENA SAWYER /[id number] LARON
[2018-01-19] MEDS: Doxycycline 100 MG in Sodium Chloride 0.9% 100 ML IV SCH ×2 (05:29→18:10)
[2018-01-19 05:42] LABS: CHLORIDE,CL 107 mmol/L (98-107); SODIUM,NA 140 mmol/L (136-145)
--- NOTE | 2018-01-19 07:59 | PN ---
The patient is a 32-year-old female. PLANNED PROCEDURE: Incision and drainage with removal of foreign bodies, right foot. MEDICAL HISTORY: The patient has no known allergies. HOME MEDICATIONS: Adderall 30 mg p.o. b.i.d. 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 The patient is currently on 3 antibiotics; Levaquin, doxycycline, and clindamycin. LABORATORY DATA: White blood cell 7.32, red blood cell 4.36, hemoglobin 13.1, hematocrit 38.4, platelets 243,000. Sodium 141, potassium 3.8, chloride 106, CO2 of 23.2, BUN is 8, and creatinine is 1.1. The patient cleared for surgery by Dr. Peterson. No contraindications to surgery noted. No guarantees expressed or implied. MARIAELENA SAWYER /[id number]
--- NOTE | 2018-01-19 08:01 | PCM.PN ---
- General Info Date of Service: 01/19/18 Admission Dx/Problem (Free Text): Admission Diagnosis/Problem Admission Diagnosis/Problem Cellulitis with foreign bodies right foot Subjective Update: Doing well this morning, pain is tolerable at the moment. Denies chest pain or SOB. Foot pain is tolerable. No increase in pain. Dressing intact. Functional Status: Reports: Pain Controlled, Tolerating Diet, Ambulating, Urinating - Review of Systems General: Reports: No Symptoms. Denies: Fever, Weakness, Fatigue HEENT: Reports: No Symptoms, Sore Throat Pulmonary: Reports: No Symptoms. Denies: Shortness of Breath, Cough, Sputum Cardiovascular: Reports: No Symptoms. Denies: Chest Pain, Palpitations, Edema Gastrointestinal: Reports: No Symptoms. Denies: Abdominal Pain, Nausea, Vomiting Genitourinary: Reports: No Symptoms. Denies: Dysuria, Frequency, Burning Musculoskeletal: Reports: No Symptoms Neurological: Reports: No Symptoms Psychiatric: Reports: No Symptoms - Patient Data Vitals - Most Recent: Last Vital Signs Temp 97.9 F 01/19/18 07:00 Pulse 79 01/19/18 07:00 Resp 16 01/19/18 07:00 BP 117/62 01/19/18 07:00 Pulse Ox 98 01/19/18 07:00 Weight - Most Recent: 68.039 kg I&O - Last 24 Hours: Intake & Output 01/18/18 01/19/18 01/19/18 22:59 06:59 14:59 Intake Total 900 350 Output Total 1000 Balance 900 -650 Lab Results Last 24 Hours: Laboratory Results - last 24 hr 01/18/18 01/18/18 01/18/18 Range/Units 14:40 14:40 16:22 WBC 7.32 (4.0-11.0) K/uL RBC 4.36 (4.30-5.90) M/uL Hgb 13.1 (12.0-16.0) g/dL Hct 38.4 (36.0-46.0) % MCV 88.1 (80.0-98.0) fL MCH 30.0 (27.0-32.0) pg MCHC 34.1 (31.0-37.0) g/dL RDW Std Deviation 39.9 (28.0-62.0) fl RDW Coeff of Myron 12 (11.0-15.0) % Plt Count 243 (150-400) K/uL MPV 10.10 (7.40-12.00) fL Neut % (Auto) 64.0 (48.0-80.0) % Lymph % (Auto) 20.1 (16.0-40.0) % Clinton % (Auto) 11.2 (0.0-15.0) % Eos % (Auto) 3.7 (0.0-7.0) % Baso % (Auto) 1.0 (0.0-1.5) % Neut # (Auto) 4.7 (1.4-5.7) K/uL Lymph # (Auto) 1.5 (0.6-2.4) K/uL Clinton # (Auto) 0.8 (0.0-0.8) K/uL Eos # (Auto) 0.3 (0.0-0.7) K/uL Baso # (Auto) 0.1 (0.0-0.1) K/uL Nucleated RBC % 0.0 /100WBC Nucleated RBCs # 0 K/uL Sodium 141 (136-145) mmol/L Potassium 3.8 (3.5-5.1) mmol/L Chloride 106 (98-107) mmol/L Carbon Dioxide 23.2 (21.0-32.0) mmol/L BUN 8 (7.0-18.0) mg/dL Creatinine 1.1 H (0.6-1.0) mg/dL Est Cr Clr Drug Dosing 77.44 mL/min Estimated GFR (MDRD) 57.9 ml/min Glucose 96 (74-106) mg/dL Calcium 9.0 (8.5-10.1) mg/dL HCG, Qual NEGATIVE (NEG) 01/19/18 01/19/18 Range/Units 04:50 04:50 WBC 5.35 (4.0-11.0) K/uL RBC 3.84 L (4.30-5.90) M/uL Hgb 11.3 L (12.0-16.0) g/dL Hct 34.3 L (36.0-46.0) % MCV 89.3 (80.0-98.0) fL MCH 29.4 (27.0-32.0) pg MCHC 32.9 (31.0-37.0) g/dL RDW Std Deviation 40.4 (28.0-62.0) fl RDW Coeff of Myron 13 (11.0-15.0) % Plt Count 199 (150-400) K/uL MPV 10.00 (7.40-12.00) fL Neut % (Auto) 61.3 (48.0-80.0) % Lymph % (Auto) 22.1 (16.0-40.0) % Clinton % (Auto) 11.2 (0.0-15.0) % Eos % (Auto) 4.7 (0.0-7.0) % Baso % (Auto) 0.7 (0.0-1.5) % Neut # (Auto) 3.3 (1.4-5.7) K/uL Lymph # (Auto) 1.2 (0.6-2.4) K/uL Clinton # (Auto) 0.6 (0.0-0.8) K/uL Eos # (Auto) 0.3 (0.0-0.7) K/uL Baso # (Auto) 0.0 (0.0-0.1) K/uL Nucleated RBC % 0.0 /100WBC Nucleated RBCs # 0 K/uL Sodium 140 (136-145) mmol/L Potassium 4.2 (3.5-5.1) mmol/L Chloride 107 (98-107) mmol/L Carbon Dioxide 25.5 (21.0-32.0) mmol/L BUN 6 L (7.0-18.0) mg/dL Creatinine 1.0 (0.6-1.0) mg/dL Est Cr Clr Drug Dosing 85.19 mL/min Estimated GFR (MDRD) > 60.0 ml/min Glucose 92 (74-106) mg/dL Calcium 8.4 L (8.5-10.1) mg/dL HCG, Qual (NEG) Josep Results Last 24 Hours: Microbiology 01/18/18 20:37 Wound Culture - Preliminary Foot, Right 01/18/18 19:28 Gram Stain - Final Foot, Right Med Orders - Current: Current Medications Acetaminophen (Tylenol) 650 mg PO Q4H PRN PRN Reason: Pain Fentanyl (Sublimaze) 50 mcg IVPUSH SEECOMMENT PRN PRN Reason: Pain (moderate 4-6) Last Admin: 01/18/18 21:16 Dose: 50 mcg Lactated Ringer's (Ringers, Lactated) 1,000 mls @ 125 mls/hr IV ASDIRECTED [facility] Last Admin: 01/18/18 22:00 Dose: 125 mls/hr Clindamycin Phosphate 600 mg/ (Premix) 50 mls @ 92.593 mls/hr IV Q8H [facility] Last Admin: 01/18/18 23:54 Dose: 92.593 mls/hr Doxycycline Hyclate 100 mg/ (Sodium Chloride) 100 mls @ 100 mls/hr IV Q12H [facility] Last Admin: 01/19/18 05:29 Dose: 100 mls/hr Levofloxacin/Dextrose 750 mg/ (Premix) 150 mls @ 100 mls/hr IV Q24H [facility] Last Admin: 01/18/18 19:30 Dose: Not Given Morphine Sulfate (Morphine) 2 mg IVPUSH Q2H PRN PRN Reason: Pain Last Admin: 01/18/18 22:03 Dose: 2 mg Ondansetron HCl (Zofran) 4 mg IVPUSH Q4H PRN PRN Reason: Nausea Last Admin: 01/18/18 22:55 Dose: 4 mg Oxycodone HCl (Oxycodone) 5 mg PO Q4H PRN PRN Reason: Pain Last Admin: 01/19/18 04:42 Dose: 5 mg Sodium Chloride (Saline Flush) 10 ml FLUSH ASDIRECTED PRN PRN Reason: Keep Vein Open Sodium Chloride (Saline Flush) 2.5 ml FLUSH ASDIRECTED PRN PRN Reason: Keep Vein Open Discontinued Medications Hydrocodone Bitart/Acetaminophen (Hastings 325-5 Mg) 1 - 2 tab PO Q4H PRN PRN Reason: Pain (moderate 4-6) Bupivacaine HCl (Sensorcaine-Mpf 0.5%) Confirm Administered Dose 10 ml .ROUTE .STK-MED ONE Stop: 01/18/18 18:40 Diphenhydramine HCl (Benadryl) 25 mg IVPUSH ONETIME ONE Stop: 01/18/18 21:28 Last Admin: 01/18/18 23:27 Dose: Not Given Diphenhydramine HCl (Benadryl) Confirm Administered Dose 50 mg .ROUTE .STK-MED ONE Stop: 01/18/18 21:30 Last Admin: 01/18/18 22:22 Dose: Not Given Fentanyl (Sublimaze) Confirm Administered Dose 250 mcg .ROUTE .STK-MED ONE Stop: 01/18/18 18:15 Piperacillin Sod/Tazobactam (Sod 4.5 gm/ Sodium Chloride) 100 mls @ 100 mls/hr IV ONETIME ONE Stop: 01/18/18 15:20 Last Admin: 01/18/18 14:40 Dose: 100 mls/hr Acetaminophen (Ofirmev) Confirm Administered Dose 100 mls @ as directed IV .STK- MED ONE Stop: 01/18/18 20:27 Ketorolac Tromethamine (Toradol) 30 mg IVPUSH ONETIME ONE Stop: 01/18/18 14:59 Last Admin: 01/18/18 15:05 Dose: 30 mg Ketorolac Tromethamine (Toradol) Confirm Administered Dose 30 mg .ROUTE .STK- MED ONE Stop: 01/18/18 20:33 Lidocaine (Xylocaine-Mpf 2%) Confirm Administered Dose 5 ml .ROUTE .STK-MED ONE Stop: 01/18/18 18:14 Lorazepam (Ativan) 0.25 mg IVPUSH ONETIME ONE Stop: 01/18/18 16:47 Last Admin: 01/18/18 17:59 Dose: 0.25 mg Midazolam HCl (Versed 1 Mg/Ml) Confirm Administered Dose 2 mg .ROUTE .STK-MED ONE Stop: 01/18/18 18:14 Ondansetron HCl (Zofran) Confirm Administered Dose 4 mg .ROUTE .STK-MED ONE Stop: 01/18/18 18:14 Propofol (Diprivan 20 Ml) Confirm Administered Dose 200 mg .ROUTE .STK-MED ONE Stop: 01/18/18 18:14 Scopolamine (Transderm-Scop) Confirm Administered Dose 1.5 mg .ROUTE .STK-MED ONE Stop: 01/18/18 21:37 - Exam General: Alert, Oriented, Cooperative, No Acute Distress Lungs: Clear to Auscultation, Normal Respiratory Effort Cardiovascular: Regular Rate, Regular Rhythm GI/Abdominal Exam: Normal Bowel Sounds, Soft, Non-Tender, No Distention Extremities: Normal Range of Motion, Non-Tender Wound/Incisions: Dressing Dry and Intact (Post- op dressing intact. Will contact Dr Ferreira regarding removal and replacement of this. ), No Drainage Neurological: No New Focal Deficit Psy/Mental Status: Alert, Normal Affect, Normal Mood - Problem List & Annotations (1) Cellulitis SNOMED Code(s): 349306948 Code(s): L03.90 - CELLULITIS, UNSPECIFIED Status: Acute Current Visit: No Qualifiers: Site of cellulitis: extremity Site of cellulitis of extremity: lower extremity Laterality: right Qualified Code(s): L03.115 - Cellulitis of right lower limb - Problem List Review Problem List Initiated/Reviewed/Updated: Yes - My Orders Last 24 Hours: My Active Orders 01/18/18 15:29 Communication Order [RC] PER UNIT ROUTINE Up ad Earnestine [RC] ASDIRECTED VTE/DVT Education [RC] PER UNIT ROUTINE Vital Signs [RC] Q4H Ondansetron [Zofran] 4 mg IVPUSH Q4H PRN Resuscitation Status Routine 01/18/18 15:30 Intake and Output [RC] QSHIFT 01/18/18 15:58 oxyCODONE 5 mg PO Q4H PRN 01/18/18 16:00 Lactated Ringers [Ringers, Lactated] 1,000 ml IV ASDIRECTED 01/18/18 16:23 Consult to Physician [CONS] Routine 01/18/18 16:24 Elevate Extremity [RC] BID Notify Provider Consults [RC] ASDIRECTED Acetaminophen [Tylenol] 650 mg PO Q4H PRN 01/18/18 16:30 Clindamycin Phosphate in D5W [Cleocin in D5W] 600 mg Premix Bag 1 bag IV Q8H 01/18/18 16:46 Morphine 2 mg IVPUSH Q2H PRN 01/18/18 17:15 SCD [Sequential Compression Device] [OM.PC] Routine 01/18/18 17:30 Levofloxacin/Dextrose 5%-Water [Levaquin in D5W 750 MG/150 ML] 750 mg Premix Bag 1 bag IV Q24H 01/18/18 18:30 Doxycycline [Vibramycin] 100 mg Sodium Chloride 0.9% [Normal Saline] 100 ml IV Q12H 01/19/18 Breakfast Regular Diet [DIET] - Plan Plan:: This 32 year old female admitted for cellulitis to R foot secondary to sea urchin puncture. 1. Cellulitis to R foot: Improving. Cultures pending, prelim gram stain reveals gram positive cocci in pairs. Continue Clindamycin, Levaquin and Doxycycline. Dr Ferreira, podiatry consulted took patient to OR last evening. BC negative x 1 day for growth. She is to keep R foot elevated as much as possible. NWB to R foot. I spoke with Dr Ferreira, dressing to remain in place today if she is staying and he will change in the morning. VTE prophylaxis: SCDs Dispo: Possible home in the morning when cultures return.
[2018-01-19] MEDS: Lactated Ringers 1,000 ML IV SCH (08:09)
[2018-01-19] MEDS: Clindamycin Phosphate in D5W 600 MG in Premix Bag 1 BAG IV SCH ×4 (08:10→15:42)
[2018-01-19] MEDS: Docusate Sodium 100 MG Cap PO SCH (09:10)
--- NOTE | 2018-01-19 09:18 | PCM48HPAN ---
Post Anesthesia Note - EVALUATION WITHIN 48HRS OF ANESTHETIC Vital Signs in Normal Range: Yes Patient Participated in Evaluation: Yes Respiratory Function Stable: Yes Airway Patent: Yes Cardiovascular Function Stable: Yes Hydration Status Stable: Yes Pain Control Satisfactory: Yes Nausea and Vomiting Control Satisfactory: Yes Mental Status Recovered: Yes Resp Rate: 16
[2018-01-19] MEDS ORDERED: Benzocaine/Cetylpyridinium/Menthol Lozenge MUCMEM PRN (09:42)
[2018-01-19] MEDS: Morphine 2 MG/ML Syringe IVPUSH PRN ×2 (12:03→19:29)
[2018-01-19] MEDS: Levofloxacin/Dextrose 5%-Water 750 MG in Premix Bag 1 BAG IV SCH (16:54)
[2018-01-19] MEDS: Ondansetron 4 MG/2 ML SDV IVPUSH PRN (19:29)
[2018-01-20] MEDS: Clindamycin Phosphate in D5W 600 MG in Premix Bag 1 BAG IV SCH ×4 (00:26→08:06)
[2018-01-20] MEDS: Acetaminophen 325 MG Tab PO PRN ×2 (00:35→08:31)
[2018-01-20] MEDS: Morphine 2 MG/ML Syringe IVPUSH PRN (02:15)
[2018-01-20 05:59] LABS: CHLORIDE,CL 106 mmol/L (98-107); SODIUM,NA 141 mmol/L (136-145)
[2018-01-20] MEDS: Doxycycline 100 MG in Sodium Chloride 0.9% 100 ML IV SCH (06:44)
[2018-01-20] MEDS: Docusate Sodium 100 MG Cap PO SCH (08:06)
[2018-01-20] MEDS: oxyCODONE 5 MG Tab PO PRN (11:59)
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
--- NOTE | 2018-01-20 14:31 | PCM.CONSN ---
- General Info Date of Service: 01/20/18 Admission Dx/Problem (Free Text): Admission Diagnosis/Problem Admission Diagnosis/Problem Cellulitis with foreign bodies right foot Subjective Update: Feeling much better today and is eager for discharge. No chest pain or SOB. Foot pain is tolerable with Oxycodone. Functional Status: Reports: Pain Controlled - Review of Systems General: Reports: No Symptoms HEENT: Reports: No Symptoms Pulmonary: Reports: No Symptoms Cardiovascular: Reports: No Symptoms Gastrointestinal: Reports: No Symptoms Genitourinary: Reports: No Symptoms Musculoskeletal: Reports: No Symptoms Skin: Reports: No Symptoms Neurological: Reports: No Symptoms Psychiatric: Reports: No Symptoms - Patient Data Vitals - Most Recent: Last Vital Signs Temp 36.4 C 01/20/18 11:42 Pulse 63 01/20/18 11:42 Resp 18 01/20/18 11:42 BP 126/78 01/20/18 11:42 Pulse Ox 98 01/20/18 11:42 Weight - Most Recent: 68.039 kg I&O - Last 24 Hours: Intake & Output 01/19/18 01/20/18 01/20/18 22:59 06:59 14:59 Intake Total 1000 750 Output Total 800 1630 Balance 200 -880 Lab Results Last 24 Hours: Laboratory Results - last 24 hr 01/20/18 01/20/18 Range/Units 05:03 05:03 WBC 6.26 (4.0-11.0) K/uL RBC 3.79 L (4.30-5.90) M/uL Hgb 11.4 L (12.0-16.0) g/dL Hct 34.5 L (36.0-46.0) % MCV 91.0 (80.0-98.0) fL MCH 30.1 (27.0-32.0) pg MCHC 33.0 (31.0-37.0) g/dL RDW Std Deviation 38.5 (28.0-62.0) fl RDW Coeff of Myron 12 (11.0-15.0) % Plt Count 207 (150-400) K/uL MPV 10.70 (7.40-12.00) fL Add Manual Diff YES Neutrophils % (Manual) 50 (48.0-80.0) % Band Neutrophils % 6 % Lymphocytes % (Manual) 27 (16.0-40.0) % Monocytes % (Manual) 8 (0.0-15.0) % Eosinophils % (Manual) 8 H (0.0-7.0) % Basophils % (Manual) 1 (0.0-1.5) % Absolute Seg Neuts 3.1 (1.4-5.7) Band Neutrophils # 0.4 Lymphocytes # (Manual) 1.7 (0.6-2.4) Monocytes # (Manual) 0.5 (0.0-0.8) Eosinophils # (Manual) 0.5 (0.0-0.7) Basophils # (Manual) 0.1 (0.0-0.1) Sodium 141 (136-145) mmol/L Potassium 3.8 (3.5-5.1) mmol/L Chloride 106 (98-107) mmol/L Carbon Dioxide 25.1 (21.0-32.0) mmol/L BUN 7 (7.0-18.0) mg/dL Creatinine 1.0 (0.6-1.0) mg/dL Est Cr Clr Drug Dosing 85.19 mL/min Estimated GFR (MDRD) > 60.0 ml/min Glucose 104 (74-106) mg/dL Calcium 8.4 L (8.5-10.1) mg/dL Josep Results Last 24 Hours: Microbiology 01/18/18 19:28 Wound Culture - Final Foot, Right Staphylococcus Aureus Anaerobic Culture - Preliminary 01/18/18 20:37 Wound Culture - Preliminary Foot, Right No Growth Med Orders - Current: Current Medications Discontinued Medications Acetaminophen (Tylenol) 650 mg PO Q4H PRN PRN Reason: Pain Last Admin: 01/20/18 08:31 Dose: 650 mg Hydrocodone Bitart/Acetaminophen ([place] 325-5 Mg) 1 - 2 tab PO Q4H PRN PRN Reason: Pain (moderate 4-6) Benzocaine/Menthol (Cepacol Sore Throat) 1 lozenge MUCMEM Q2H PRN PRN Reason: Sore Throat Bupivacaine HCl (Sensorcaine-Mpf 0.5%) Confirm Administered Dose 10 ml .ROUTE .STK-MED ONE Stop: 01/18/18 18:40 Diphenhydramine HCl (Benadryl) 25 mg IVPUSH ONETIME ONE Stop: 01/18/18 21:28 Last Admin: 01/18/18 23:27 Dose: Not Given Diphenhydramine HCl (Benadryl) Confirm Administered Dose 50 mg .ROUTE .STK-MED ONE Stop: 01/18/18 21:30 Last Admin: 01/18/18 22:22 Dose: Not Given Docusate Sodium (Colace) 100 mg PO DAILY [facility] Last Admin: 01/20/18 08:06 Dose: 100 mg Fentanyl (Sublimaze) Confirm Administered Dose 250 mcg .ROUTE .STK-MED ONE Stop: 01/18/18 18:15 Fentanyl (Sublimaze) 50 mcg IVPUSH SEECOMMENT PRN PRN Reason: Pain (moderate 4-6) Last Admin: 01/18/18 21:16 Dose: 50 mcg Piperacillin Sod/Tazobactam (Sod 4.5 gm/ Sodium Chloride) 100 mls @ 100 mls/hr IV ONETIME ONE Stop: 01/18/18 15:20 Last Admin: 01/18/18 14:40 Dose: 100 mls/hr Lactated Ringer's (Ringers, Lactated) 1,000 mls @ 125 mls/hr IV ASDIRECTED [facility] Last Admin: 01/19/18 08:09 Dose: 125 mls/hr Clindamycin Phosphate 600 mg/ (Premix) 50 mls @ 92.593 mls/hr IV Q8H [facility] Last Admin: 01/20/18 08:06 Dose: 92.593 mls/hr Doxycycline Hyclate 100 mg/ (Sodium Chloride) 100 mls @ 100 mls/hr IV Q12H [facility] Last Admin: 01/20/18 06:44 Dose: 100 mls/hr Levofloxacin/Dextrose 750 mg/ (Premix) 150 mls @ 100 mls/hr IV Q24H [facility] Last Admin: 01/19/18 16:54 Dose: 100 mls/hr Acetaminophen (Ofirmev) Confirm Administered Dose 100 mls @ as directed IV .STK- MED ONE Stop: 01/18/18 20:27 Ketorolac Tromethamine (Toradol) 30 mg IVPUSH ONETIME ONE Stop: 01/18/18 14:59 Last Admin: 01/18/18 15:05 Dose: 30 mg Ketorolac Tromethamine (Toradol) Confirm Administered Dose 30 mg .ROUTE .STK- MED ONE Stop: 01/18/18 20:33 Lidocaine (Xylocaine-Mpf 2%) Confirm Administered Dose 5 ml .ROUTE .STK-MED ONE Stop: 01/18/18 18:14 Lorazepam (Ativan) 0.25 mg IVPUSH ONETIME ONE Stop: 01/18/18 16:47 Last Admin: 01/18/18 17:59 Dose: 0.25 mg Midazolam HCl (Versed 1 Mg/Ml) Confirm Administered Dose 2 mg .ROUTE .STK-MED ONE Stop: 01/18/18 18:14 Morphine Sulfate (Morphine) 2 mg IVPUSH Q2H PRN PRN Reason: Pain Last Admin: 01/20/18 02:15 Dose: 2 mg Ondansetron HCl (Zofran) 4 mg IVPUSH Q4H PRN PRN Reason: Nausea Last Admin: 01/19/18 19:29 Dose: 4 mg Ondansetron HCl (Zofran) Confirm Administered Dose 4 mg .ROUTE .STK-MED ONE Stop: 01/18/18 18:14 Oxycodone HCl (Oxycodone) 5 mg PO Q4H PRN PRN Reason: Pain Last Admin: 01/19/18 09:10 Dose: 5 mg Oxycodone HCl (Oxycodone) 5 - 10 mg PO Q4H PRN PRN Reason: Pain Last Admin: 01/20/18 11:59 Dose: 10 mg Propofol (Diprivan 20 Ml) Confirm Administered Dose 200 mg .ROUTE .STK-MED ONE Stop: 01/18/18 18:14 Scopolamine (Transderm-Scop) Confirm Administered Dose 1.5 mg .ROUTE .STK-MED ONE Stop: 01/18/18 21:37 Sodium Chloride (Saline Flush) 10 ml FLUSH ASDIRECTED PRN PRN Reason: Keep Vein Open Sodium Chloride (Saline Flush) 2.5 ml FLUSH ASDIRECTED PRN PRN Reason: Keep Vein Open - Exam Extremities: Normal Capillary Refill, Other (sutures intact and skin well coapted to right foot incision sites, no active drainage) Skin: Warm, Dry, Intact Wound/Incisions: Healing Well, Dressing Dry and Intact, No Drainage, Erythema Improving Consult PN Assessment/Plan POD#: 2 Procedures: Procedures BLOOD CULTURE FOR BACTERIA (01/17/18) COMPLETE CBC W/AUTO DIFF WBC (01/17/18) COMPREHEN METABOLIC PANEL (01/17/18) EMERGENCY DEPT VISIT (01/17/18) ROUTINE VENIPUNCTURE (01/17/18) THER/PROPH/DIAG IV INF INIT (01/17/18) X-RAY EXAM OF FOOT (01/17/18) status post incision and drainage right foot 01/18/18 (1) Cellulitis of right foot SNOMED Code(s): 116315140 Code(s): L03.115 - CELLULITIS OF RIGHT LOWER LIMB Priority: Medium Onset Date: ~01/11/18 Assessment:: Patient healing well and ready for discharge with antibiotics and non-weight bearing status Problem List Initiated/Reviewed/Updated: Yes Plan: 1. Patient examined at bedside and dressing change done. 2. Patient instructed to remain non-weight bearing with crutches. 3. Patient to keep new dressings intact, clean and dry 4. Patient to obtain shower bag at my office today. 5. Patient to begin oral antibiotics upon discharge. 6. Patient to be discharged today and followup in my office on Wednesday, January 24, 2018.
== END 2018-01-20 13:40 | disposition home or self-care (01) ==
LOC: MW.ED 13:44 → MW.MS 14:39
PROVIDERS: ADMIT Internal Medicine; ATTEND Internal Medicine
DX: L03.115 Cellulitis of right lower limb (principal); S91.341A Puncture wound with foreign body, right foot, initial encounter; Y93.18 Activity, surfing, windsurfing and boogie boarding; Z79.899 Other long term (current) drug therapy
CPT/HCPCS: 01470; 36415; 80048; 84703; 85025; 87070; 87075; 87077; 87186; 87205; 88300; 96365; 96375; 99284; 99284-25; A9270-GY; J1200; J1885; J1956; J2060; J2250; J2270; J2405; J2543; J2704; J3010; J7030; J7120

== ENCOUNTER 2018-11-29 07:35 | Day surgery (SDC) | payer OTHER ==
[~2018-11-29 07:35] MED LIST: Dexamethasone 4 MG/ML 5 ML MDV ONE; Midazolam 1 MG/ML 2 ML SDV ONE; Ondansetron 4 MG/2 ML SDV ONE; Propofol 200 MG/20 ML SDV ONE; Sodium Chloride 0.9% 10 ML SDV IV PRN; Sodium Chloride 0.9% 10 ML Syringe FLUSH PRN; Sodium Chloride 0.9% 2.5 ML Syringe FLUSH PRN; fentaNYL 100 MCG/2 ML SDV IVPUSH PRN; fentaNYL 250 MCG/5 ML SDV ONE
[2018-11-29] MEDS ORDERED: Lidocaine 1% with EPINEPHrine 1:100,000 10 ML MDV ONE (07:45)
--- NOTE | 2018-11-29 07:58 | PCM.PREANE ---
Preanesthetic Assessment - Anesthesia/Transfusion/Family Hx Anesthesia History: Prior Anesthesia Without Reaction Other Type of Anesthesia Reaction Comment: "get violent coming out of anesthesia " Family History of Anesthesia Reaction: No Transfusion History: No Prior Transfusion(s) Intubation History: Unknown - Review of Systems General: No Symptoms Pulmonary: No Symptoms Cardiovascular: No Symptoms Gastrointestinal: No Symptoms Neurological: No Symptoms Other: Reports: None - Physical Assessment O2 Sat by Pulse Oximetry: 100 Respiratory Rate: 16 Vital Signs: Last Vital Signs Temp 36.7 C 11/29/18 07:47 Pulse 80 11/29/18 07:47 Resp 16 11/29/18 07:47 BP 114/75 11/29/18 07:47 Pulse Ox 100 11/29/18 07:47 Height: 1.75 m Weight: 66.678 kg ASA Class: 2 Mental Status: Alert & Oriented x3 Airway Class: Mallampati = 1 Dentition: Reports: Normal Dentition Thyro-Mental Finger Breadths: 3 Mouth Opening Finger Breadths: 3 ROM/Head Extension: Full Lungs: Clear to Auscultation, Normal Respiratory Effort Cardiovascular: Regular Rate, Regular Rhythm - Allergies Allergies/Adverse Reactions: Allergies Allergy/AdvReac Type Severity Reaction Status Date / Time No Known Allergies Allergy Verified 11/24/18 10:33 - Blood Blood Available: No - Anesthesia Plan Pre-Op Medication Ordered: None - Acknowledgements Anesthesia Type Planned: MAC Pt an Appropriate Candidate for the Planned Anesthesia: Yes Alternatives and Risks of Anesthesia Discussed w Pt/Guardian: Yes Pt/Guardian Understands and Agrees with Anesthesia Plan: Yes PreAnesthesia Questionnaire HEENT History: Reports: Other (See Below) Other HEENT History: wears glasses/contacts Cardiovascular History: Reports: None Respiratory History: Reports: None Gastrointestinal History: Reports: Other (See Below) Other Gastrointestinal History: occasional heartburn Genitourinary History: Reports: Renal Calculus EVENTS MANAGER History: Reports: None, Other (See Below) (h/o ovarian cyst) Musculoskeletal History: Reports: Fracture Other Musculoskeletal History: hx fx tailbone and ankles Neurological History: Reports: None Psychiatric History: Reports: ADHD, Depression Endocrine/Metabolic History: Reports: None Hematologic History: Reports: None Immunologic History: Reports: None Oncologic (Cancer) History: Reports: None Dermatologic History: Reports: Cellulitis - Infectious Disease History Infectious Disease History: Reports: Chicken Pox - Past Surgical History Head Surgeries/Procedures: Reports: None HEENT Surgical History: Reports: None Cardiovascular Surgical History: Reports: None Respiratory Surgical History: Reports: None GI Surgical History: Reports: Bariatric Procedure, Cholecystectomy, Other (See Below) Other GI Surgeries/Procedures: Gastric Sleeve Female Surgical History: Reports: None Endocrine Surgical History: Reports: None Neurological Surgical History: Reports: None Musculoskeletal Surgical History: Reports: Other (See Below) Other Musculoskeletal Surgeries/Procedures:: removal of fatty tumor on left side of neck Oncologic Surgical History: Reports: None Dermatological Surgical History: Reports: Other (See Below) (rt. fooot surgery) - SUBSTANCE USE Smoking Status *Q: Former Smoker Tobacco Use Within Last Twelve Months: No Recreational Drug Use History: No - HOME MEDS Home Medications: Home Meds Acetaminophen [Tylenol Extra Strength] 2 tab PO ASDIRECTED PRN 11/24/18 [History ] Cholecalciferol (Vitamin D3) [Vitamin D3] 1,000 units PO DAILY 11/24/18 [History ] Cyanocobalamin (Vitamin B-12) [Vitamin B-12] 500 mcg PO DAILY 11/24/18 [History] Dextroamphetamine/Amphetamine [Adderall] 30 mg PO BID 11/24/18 [History] Fish Oil/[place]-3 Fatty Acids [Fish Oil 1,000 MG] 1,000 mg PO DAILY 11/24/18 [ History] Ibuprofen 1 tab PO ASDIRECTED PRN 11/24/18 [History] L.acidoph,Paracasei, B.lactis [Probiotic] 1 tab PO DAILY 11/24/18 [History] Multivitamin [Multivitamins] 1 tab PO DAILY 11/24/18 [History] medroxyPROGESTERone Acetate [Depo-Provera] 1 injection IM ASDIRECTED 11/24/18 [ History] - CURRENT (IN HOUSE) MEDS Current Meds: Current Medications Fentanyl (Sublimaze) 50 mcg IVPUSH Q5M PRN PRN Reason: Pain (severe 7-10) Stop: 11/29/18 12:00 Sodium Chloride (Saline Flush) 10 ml FLUSH ASDIRECTED PRN PRN Reason: Keep Vein Open Sodium Chloride (Saline Flush) 2.5 ml FLUSH ASDIRECTED PRN PRN Reason: Keep Vein Open Sodium Chloride (Normal Saline) 10 ml IV ASDIRECTED PRN PRN Reason: IV Use Discontinued Medications Dexamethasone (Dexamethasone) Confirm Administered Dose 20 mg .ROUTE .STK-MED ONE Stop: 11/29/18 07:02 Fentanyl (Sublimaze) Confirm Administered Dose 250 mcg .ROUTE .STK-MED ONE Stop: 11/29/18 07:02 Acetaminophen (Ofirmev) Confirm Administered Dose 100 mls @ as directed IV .STK- MED ONE Stop: 11/29/18 06:57 Lidocaine HCl (Xylocaine-Mpf 1%) Confirm Administered Dose 5 mls @ as directed .ROUTE .STK-MED ONE Stop: 11/29/18 07:02 Lidocaine/Epinephrine (Xylocaine 1% With Epinephrine 1:100,000) Confirm Administered Dose 10 ml .ROUTE .STK-MED ONE Stop: 11/29/18 07:46 Midazolam HCl (Versed 1 Mg/Ml) Confirm Administered Dose 2 mg .ROUTE .STK-MED ONE Stop: 11/29/18 07:01 Ondansetron HCl (Zofran) Confirm Administered Dose 4 mg .ROUTE .STK-MED ONE Stop: 11/29/18 07:02 Propofol (Diprivan 20 Ml) Confirm Administered Dose 200 mg .ROUTE .STK-MED ONE Stop: 11/29/18 07:01
[2018-11-29] MEDS ORDERED: Ketorolac 30 MG/ML SDV ONE (08:28)
[2018-11-29] MEDS ORDERED: Propofol 200 MG/20 ML SDV ONE (08:45)
--- NOTE | 2018-11-29 09:09 | PCM.OPNOTE ---
- General Post-Op/Procedure Note Date of Surgery/Procedure: 11/29/18 Operative Procedure(s): LEEP of cervix Findings: KEVIN II Pre Op Diagnosis: KEVIN II Post-Op Diagnosis: Same Anesthesia Technique: Local, MAC Primary Surgeon: Madelaine Fenton Fluid Replacement, Intraop: 600 EBL in mLs: 20 Complications: none known Condition: Good Free Text/Narrative:: Dictation [id number]
--- NOTE | 2018-11-29 12:36 | OR ---
SURGEON: Madelaine Fenton M.D. DATE OF PROCEDURE: 11/29/2018 PREOPERATIVE DIAGNOSIS: Cervical intraepithelial neoplasia 2. POSTOPERATIVE DIAGNOSIS: Cervical intraepithelial neoplasia 2. PROCEDURE: Loop electrosurgical excision procedure of cervix. ANESTHESIA: MAC local. ESTIMATED BLOOD LOSS: 20 mL. FLUIDS: 600 mL of crystalloid. COMPLICATIONS: None known. FINDINGS: KEVIN 2. DISPOSITION: The patient to PACU, stable. PROCEDURE IN DETAIL: Мария is a 33-year-old nulligravida patient, who has a colposcopy biopsy proven KEVIN 2. At this time, further evaluation and treatment have been discussed with her and agreed to proceed with LEEP procedure of the cervix. Risks of procedure have been discussed. Proper consent obtained. The patient was taken to the operating room where she underwent MAC, placed in modified dorsal position. A coated speculum was introduced into the vagina. Cervix was visualized. Sidewall retractor also placed. Cervix prepped with Lugol solution. Cervical block was now performed with 1% lidocaine with epinephrine dilute. Using a 25 mm loop was able to do a single pass, shallow excision of the cervix. Specimen was marked with stitch at 12 o'clock position, to be sent to pathology for further analysis. a 5 mm endocervical hat was now obtained, this will be also sent to pathology. The wound bed was now cauterized with rollerball followed by Monsel's. Hemostasis appeared evident. All instruments were removed from the vagina. Sponge, needle, and instrument count was correct x2. Specimen to pathology. The patient tolerated the procedure well. Hemostasis evident. She will go to PACU in stable condition. CARSON / SILVERIO /[id number] LARON
== END 2018-11-29 10:01 | disposition home or self-care (01) ==
LOC: MW.SDS 07:35
PROVIDERS: ATTEND Obstetrics & Gynecology
DX: N87.0 Mild cervical dysplasia (principal); F90.9 Attention-deficit hyperactivity disorder, unspecified type; Z87.891 Personal history of nicotine dependence; Z79.1 Long term (current) use of non-steroidal anti-inflammatories (NSAID); Z79.899 Other long term (current) drug therapy
CPT/HCPCS: 36415; 57460; 84703; 85027; J0131; J1100; J1885; J2001; J2250; J2405; J2704; J3010

== ENCOUNTER 2018-12-11 17:23 | Emergency (ER) | payer OTHER ==
[2018-12-11] MEDS ORDERED: Sodium Chloride 0.9% 1,000 ML IV ONE (19:30)
--- NOTE | 2018-12-11 19:31 | EDM.PDOC ---
ED HPI GENERAL MEDICAL PROBLEM - General Chief Complaint: TAB MACHINE OPERATOR Problem Stated Complaint: BLEEDING FROM SURG Time Seen by Provider: 12/11/18 17:36 Source of Information: Reports: Patient History Limitations: Reports: No Limitations - History of Present Illness INITIAL COMMENTS - FREE TEXT/NARRATIVE: HISTORY AND PHYSICAL: History of present illness: Patient is a 33-year-old female presents to the ED today with concern for heavy vaginal bleeding. Patient states she had a LEEP procedure 2 weeks [address] Fenton. Patient states over the past 4 days she's had vaginal bleeding but today is the heaviest that she has ever had bleeding. Patient states she has soaked 10 through normal pads and 1 hour since this morning and was told that if she soaks through 1 pad an hour that she needed be evaluated. Patient states she is passing clots and the blood is bright red. Patient states she has not had anything in her vagina since the LEEP procedure and has not had intercourse. Patient denies any other symptoms at this time. Patient denies fever, chills, chest pain, shortness of breath, or cough. Denies headache, neck stiff ness, change in vision, syncope, or near syncope. Denies nausea, vomiting, abdominal pain, diarrhea, constipation, or dysuria. Has not noted any blood in urine or stool. Patient has been eating and drinking appropriately. Review of systems: As per history of present illness and below otherwise all systems reviewed and negative. Past medical history: As per history of present illness and as reviewed below otherwise noncontributory. Surgical history: As per history of present illness and as reviewed below otherwise noncontributory. Social history: See social history for further information Family history: As per history of present illness and as reviewed below otherwise noncontributory. Physical exam: General: Patient is alert, oriented, and in no acute distress. Patient sitting comfortably on exam table. HEENT: Atraumatic, normocephalic, pupils equal and reactive bilaterally, negative for conjunctival pallor or scleral icterus, mucous membranes moist, TMs normal bilaterally, throat clear, neck supple, nontender, trachea midline. No drooling or trismus noted. No meningeal signs. No hot potato voice noted. Lungs: Clear to auscultation, breath sounds equal bilaterally, chest nontender. Heart: S1S2, regular rate and rhythm without overt murmur Abdomen: Soft, nondistended, nontender. Negative for masses or hepatosplenomegaly. Negative for costovertebral tenderness. Pelvis: Stable nontender. Genitourinary: External genitalia grossly unremarkable. There is a moderate to large amount of bright red blood in the vaginal vault. There is clotting within the vaginal vault as well. Cervix is not well visualized due to clotting and bleeding. Negative cervical motion tenderness. Uterus is approximately 6 weeks in size. Unable to visualize any direct cause of patient's bleeding. Rectal: Deferred. Skin: Intact, warm, dry. No lesions or rashes noted. Extremities: Atraumatic, negative for cords or calf pain. Neurovascular unremarkable. Neuro: Awake, alert, oriented. Cranial nerves II through XII unremarkable. Cerebellum unremarkable. Motor and sensory unremarkable throughout. Exam nonfocal. Notes: Dr. Irvin verbally involved in patient care. Dr. Jimenez, TAB MACHINE OPERATOR on-call, consulted on patient and has come in to personally see patient. See her official consult note for further treatment and disposition for patient. Patient was observed for [address] Escalona procedure for rebleed. Patient did not rebleed and was discharged from the ED per Dr. Jimenez disposition. Voices understanding and is agreeable to plan of care. Denies any further questions or concerns at this time. Diagnostics: CBC, CMP, UA, urine hCG, transvaginal ultrasound, PT/INR, PTT, Blood type Therapeutics: Saline, morphine, tranexamic acid Prescription: See Dr. Jimenez, none Impression: Abnormal vaginal bleeding Post op bleed Plan: 1. You can use Tylenol as directed for pain and discomfort. 2. Follow-up with your TAB MACHINE OPERATOR as discussed. Return to the ED as needed and as discussed. Definitive disposition and diagnosis as appropriate pending reevaluation and review of above. pelivc Pain Score (Numeric/FACES): 7 - Related Data Allergies Allergy/AdvReac Type Severity Reaction Status Date / Time No Known Allergies Allergy Verified 12/11/18 17:32 Home Meds: Home Meds Acetaminophen [Tylenol Extra Strength] 2 tab PO ASDIRECTED PRN 11/24/18 [History ] Cholecalciferol (Vitamin D3) [Vitamin D3] 1,000 units PO DAILY 11/24/18 [History ] Cyanocobalamin (Vitamin B-12) [Vitamin B-12] 500 mcg PO DAILY 11/24/18 [History] Dextroamphetamine/Amphetamine [Adderall] 30 mg PO BID 11/24/18 [History] Fish Oil/[place]-3 Fatty Acids [Fish Oil 1,000 MG] 1,000 mg PO DAILY 11/24/18 [ History] L.acidoph,Paracasei, B.lactis [Probiotic] 1 tab PO DAILY 11/24/18 [History] Multivitamin [Multivitamins] 1 tab PO DAILY 11/24/18 [History] medroxyPROGESTERone Acetate [Depo-Provera] 1 injection IM ASDIRECTED 11/24/18 [ History] Tranexamic Acid [Lysteda] 1,300 mg PO TID 5 Days #30 tablet 12/11/18 [Rx] Past Medical History HEENT History: Reports: Other (See Below) Other HEENT History: wears glasses/contacts Cardiovascular History: Reports: None Respiratory History: Reports: None Gastrointestinal History: Reports: Other (See Below) Other Gastrointestinal History: occasional heartburn Genitourinary History: Reports: Renal Calculus TAB MACHINE OPERATOR History: Reports: None, Other (See Below) Musculoskeletal History: Reports: Fracture Other Musculoskeletal History: hx fx tailbone and ankles Neurological History: Reports: None Psychiatric History: Reports: ADHD, Depression Endocrine/Metabolic History: Reports: None Hematologic History: Reports: None Immunologic History: Reports: None Oncologic (Cancer) History: Reports: None Dermatologic History: Reports: Cellulitis - Infectious Disease History Infectious Disease History: Reports: Chicken Pox - Past Surgical History Head Surgeries/Procedures: Reports: None HEENT Surgical History: Reports: None Cardiovascular Surgical History: Reports: None Respiratory Surgical History: Reports: None GI Surgical History: Reports: Bariatric Procedure, Cholecystectomy, Other (See Below) Other GI Surgeries/Procedures: Gastric Sleeve Female Surgical History: Reports: LEEP Endocrine Surgical History: Reports: None Neurological Surgical History: Reports: None Musculoskeletal Surgical History: Reports: Other (See Below) Other Musculoskeletal Surgeries/Procedures:: removal of fatty tumor on left side of neck Oncologic Surgical History: Reports: None Dermatological Surgical History: Reports: Other (See Below) Social & Family History - Family History Family Medical History: Noncontributory - Tobacco Use Smoking Status *Q: Former Smoker Used Tobacco, but Quit: Yes Month/Year Tobacco Last Used: 2013 - Caffeine Use Caffeine Use: Reports: Coffee, Energy Drinks - Recreational Drug Use Recreational Drug Use: No - Living Situation & Occupation Living situation: Reports: Occupation: Employed ED ROS GENERAL - Review of Systems Review Of Systems: ROS reveals no pertinent complaints other than HPI. ED EXAM, RENAL/ - Physical Exam Exam: See Below (See dictation) Course - Vital Signs Last Recorded V/S: Last Vital Signs Temp 36.6 C 12/11/18 21:06 Pulse 72 12/11/18 21:06 Resp 17 12/11/18 21:06 BP 131/85 12/11/18 21:06 Pulse Ox 100 12/11/18 21:06 - Orders/Labs/Meds Orders: Active Orders 24 hr Category Date Time Status Notify Provider Consults [RC] ASDIRECTED Care 12/11/18 20:46 Active Ready for Discharge [RC] PER UNIT ROUTINE Care 12/11/18 21:07 Active Consult to Physician [CONS] Stat Cons 12/11/18 20:45 Active Labs: Laboratory Tests 12/11/18 12/11/18 12/11/18 Range/Units 17:50 17:50 17:55 WBC 11.03 H (4.0-11.0) K/uL RBC 4.58 (4.30-5.90) M/uL Hgb 13.4 (12.0-16.0) g/dL Hct 41.2 (36.0-46.0) % MCV 90.0 (80.0-98.0) fL MCH 29.3 (27.0-32.0) pg MCHC 32.5 (31.0-37.0) g/dL RDW Std Deviation 42.0 (28.0-62.0) fl RDW Coeff of Myron 13 (11.0-15.0) % Plt Count 312 (150-400) K/uL MPV 9.80 (7.40-12.00) fL Neut % (Auto) 68.8 (48.0-80.0) % Lymph % (Auto) 19.3 (16.0-40.0) % [place] % (Auto) 7.1 (0.0-15.0) % Eos % (Auto) 4.3 (0.0-7.0) % Baso % (Auto) 0.5 (0.0-1.5) % Neut # (Auto) 7.6 H (1.4-5.7) K/uL Lymph # (Auto) 2.1 (0.6-2.4) K/uL [place] # (Auto) 0.8 (0.0-0.8) K/uL Eos # (Auto) 0.5 (0.0-0.7) K/uL Baso # (Auto) 0.1 (0.0-0.1) K/uL Nucleated RBC % 0.0 /100WBC Nucleated RBCs # 0 K/uL INR APTT (18.6-31.3) SEC Sodium (136-145) mmol/L Potassium (3.5-5.1) mmol/L Chloride (98-107) mmol/L Carbon Dioxide (21.0-32.0) mmol/L BUN (7.0-18.0) mg/dL Creatinine (0.6-1.0) mg/dL Est Cr Clr Drug Dosing mL/min Estimated GFR (MDRD) ml/min Glucose (74-106) mg/dL Calcium (8.5-10.1) mg/dL Total Bilirubin (0.2-1.0) mg/dL AST (15-37) IU/L ALT (14-63) IU/L Alkaline Phosphatase (46-116) U/L Total Protein (6.4-8.2) g/dL Albumin (3.4-5.0) g/dL Globulin (2.6-4.0) g/dL Albumin/Globulin Ratio (0.9-1.6) Urine Color YELLOW Urine Appearance SLT CLOUDY Urine pH 5.0 (5.0-8.0) Ur Specific [place] 1.010 (1.001-1.035) Urine Protein NEGATIVE (NEGATIVE) mg/dL Urine Glucose (UA) NEGATIVE (NEGATIVE) mg/dL Urine Ketones NEGATIVE (NEGATIVE) mg/dL Urine Occult Blood LARGE H (NEGATIVE) Urine Nitrite NEGATIVE (NEGATIVE) Urine Bilirubin NEGATIVE (NEGATIVE) Urine Urobilinogen 0.2 (<2.0) EU/dL Ur Leukocyte Esterase NEGATIVE (NEGATIVE) Urine RBC 35-40 (0-2/HPF) Urine WBC 0-2 (0-5/HPF) Ur Epithelial Cells OCCASIONAL (NONE-FEW) Urine Bacteria FEW (NEGATIVE) Urine HCG, Qual NEGATIVE (NEGATIVE) Blood Type 12/11/18 12/11/18 12/11/18 Range/Units 17:55 17:55 17:55 WBC (4.0-11.0) K/uL RBC (4.30-5.90) M/uL Hgb (12.0-16.0) g/dL Hct (36.0-46.0) % MCV (80.0-98.0) fL MCH (27.0-32.0) pg MCHC (31.0-37.0) g/dL RDW Std Deviation (28.0-62.0) fl RDW Coeff of Myron (11.0-15.0) % Plt Count (150-400) K/uL MPV (7.40-12.00) fL Neut % (Auto) (48.0-80.0) % Lymph % (Auto) (16.0-40.0) % [place] % (Auto) (0.0-15.0) % Eos % (Auto) (0.0-7.0) % Baso % (Auto) (0.0-1.5) % Neut # (Auto) (1.4-5.7) K/uL Lymph # (Auto) (0.6-2.4) K/uL [place] # (Auto) (0.0-0.8) K/uL Eos # (Auto) (0.0-0.7) K/uL Baso # (Auto) (0.0-0.1) K/uL Nucleated RBC % /100WBC Nucleated RBCs # K/uL INR 0.99 APTT 25.7 (18.6-31.3) SEC Sodium 141 (136-145) mmol/L Potassium 4.0 (3.5-5.1) mmol/L Chloride 106 (98-107) mmol/L Carbon Dioxide 23.4 (21.0-32.0) mmol/L BUN 13 (7.0-18.0) mg/dL Creatinine 1.1 H (0.6-1.0) mg/dL Est Cr Clr Drug Dosing 76.23 mL/min Estimated GFR (MDRD) 57.6 ml/min Glucose 92 (74-106) mg/dL Calcium 9.4 (8.5-10.1) mg/dL Total Bilirubin 0.3 (0.2-1.0) mg/dL AST 10 L (15-37) IU/L ALT 17 (14-63) IU/L Alkaline Phosphatase 40 L (46-116) U/L Total Protein 7.8 (6.4-8.2) g/dL Albumin 4.4 (3.4-5.0) g/dL Globulin 3.4 (2.6-4.0) g/dL Albumin/Globulin Ratio 1.3 (0.9-1.6) Urine Color Urine Appearance Urine pH (5.0-8.0) Ur Specific [place] (1.001-1.035) Urine Protein (NEGATIVE) mg/dL Urine Glucose (UA) (NEGATIVE) mg/dL Urine Ketones (NEGATIVE) mg/dL Urine Occult Blood (NEGATIVE) Urine Nitrite (NEGATIVE) Urine Bilirubin (NEGATIVE) Urine Urobilinogen (<2.0) EU/dL Ur Leukocyte Esterase (NEGATIVE) Urine RBC (0-2/HPF) Urine WBC (0-5/HPF) Ur Epithelial Cells (NONE-FEW) Urine Bacteria (NEGATIVE) Urine HCG, Qual (NEGATIVE) Blood Type A NEGATIVE Meds: Medications Discontinued Medications Generic Name Dose Route Start Last Admin Trade Name Freq PRN Reason Stop Dose Admin Sodium Chloride 1,000 mls @ 999 mls/hr 12/11/18 19:30 12/11/18 19:46 Normal Saline IV 12/11/18 20:30 999 mls/hr STAT ONE Administration Tranexamic Acid 1,000 mg/ 110 mls @ 600 mls/hr 12/11/18 20:19 12/11/18 20:38 Sodium Chloride IV 12/11/18 20:29 600 mls/hr ONETIME ONE Administration Morphine Sulfate 2 mg 12/11/18 19:43 12/11/18 19:52 Morphine IVPUSH 12/11/18 19:44 2 mg ONETIME ONE Administration Ondansetron HCl 4 mg 12/11/18 19:48 12/11/18 19:51 Zofran IVPUSH 12/11/18 19:49 4 mg ONETIME ONE Administration Departure - Departure Time of Disposition: 21:14 Disposition: Home, Self-Care 01 Clinical Impression: Abnormal vaginal bleeding Post-op bleeding Qualifiers: Surgical complication system/body Area: genitourinary Procedure type: genitourinary Qualified Code(s): N99.820 - Postprocedural hemorrhage of a genitourinary system organ or structure following a genitourinary system procedure - Discharge Information Prescriptions: Tranexamic Acid [Lysteda] 1,300 mg PO TID 5 Days #30 tablet Instructions: Abnormal Uterine Bleeding Referrals: PCP,None [Primary Care Provider] - (Dr Jimenez or Jossy within 3 days. ) Forms: ED Department Discharge Additional Instructions: The following information is given to patients seen in the emergency department who are being discharged to home. This information is to outline your options for follow-up care. We provide all patients seen in our emergency department with a follow-up referral. The need for follow-up, as well as the timing and circumstances, are variable depending upon the specifics of your emergency department visit. If you don't have a primary care physician on staff, we will provide you with a referral. We always advise you to contact your personal physician following an emergency department visit to inform them of the circumstance of the visit and for follow-up with them and/or the need for any referrals to a consulting specialist. The emergency department will also refer you to a specialist when appropriate. This referral assures that you have the opportunity for follow-up care with a specialist. All of these measure are taken in an effort to provide you with optimal care, which includes your follow-up. Under all circumstances we always encourage you to contact your private physician who remains a resource for coordinating your care. When calling for follow-up care, please make the office aware that this follow-up is from your recent emergency room visit. If for any reason you are refused follow-up, please contact the [facility] Emergency Department at and asked to speak to the emergency department charge nurse. [facility] [address] [place] [address] [facility] [address] [place] [address] [facility] [address] [place] [address] 1. You can use Tylenol as directed for pain and discomfort. 2. Follow-up with your TAB MACHINE OPERATOR as discussed. Return to the ED as needed and as discussed. - My Orders Last 24 Hours: My Active Orders 12/11/18 20:45 Consult to Physician [CONS] Stat 12/11/18 20:46 Notify Provider Consults [RC] ASDIRECTED - Assessment/Plan Last 24 Hours: My Active Orders 12/11/18 20:45 Consult to Physician [CONS] Stat 12/11/18 20:46 Notify Provider Consults [RC] ASDIRECTED
[2018-12-11] MEDS ORDERED: Morphine 2 MG/ML Syringe IVPUSH ONE (19:43)
[2018-12-11] MEDS ORDERED: Ondansetron 4 MG/2 ML SDV IVPUSH ONE (19:48)
--- NOTE | 2018-12-11 19:52 | US ---
HISTORY: Severe vaginal bleeding. COMPARISON: None. FINDINGS: The uterus measures 6.6 x 1.8 x 3.2 cm. No evidence for uterine mass. The endometrium is homogeneous measuring 3 mm in thickness. There are multiple follicles within the ovaries. Preserved Doppler flow both ovaries. The right ovary is measured at 3.5 x 2.2 x 3.7 cm. The left ovary is measured at 3.8 x 2.9 x 1.7 cm. No significant free pelvic fluid. IMPRESSION: Normal ultrasound appearance of the pelvic organs. Dictated by Madelaine Coats MD @ Dec 11 2018 7:49PM Signed by Dr. Madelaine Coats @ Dec 11 2018 7:52PM
[2018-12-11] MEDS ORDERED: Tranexamic Acid 1,000 MG in Sodium Chloride 0.9% 100 ML IV ONE (20:19)
--- NOTE | 2018-12-11 22:07 | ER ---
CHIEF COMPLAINT: Vaginal bleeding. HISTORY OF PRESENT ILLNESS: This is a 33-year-old female, she is 12 days postop from a LEEP procedure, which was uncomplicated, and she did not have any immediate postop bleeding. Over the last 3 to 4 days, she has noticed some spotting. At approximately 3:30 p.m. today, she began having extremely heavy bleeding, saturating through a pad every 30 minutes with clots, bright red in nature. She is on Depo-Provera and has not had a period in greater than 3 years. The bleeding was associated with some pain and cramping. No fever, no chills. She presents to the emergency room for further evaluation. Please see H and P dictated from preop note. PHYSICAL EXAMINATION: VITAL SIGNS: Temperature is 36.6, pulse is 72, respiratory rate is 17, and blood pressure 131/84. GENERAL: She is alert and oriented in no acute distress. NECK: Supple without lymphadenopathy or thyromegaly. LUNGS: Clear bilaterally. CV: Regular rate without murmur. ABDOMEN: Soft, nontender. EXTREMITIES: Showed no edema. GENITOURINARY: External genitalia appears normal. Speculum was placed in the vagina. Approximately 100 mL of clot was removed from the vagina. Cervix was easily visualized and the LEEP bed was inspected. At 3 o'clock of the LEEP bed, there was a discrete area of bleeding that was treated with silver nitrate following Monsel's solution with hemostasis apparent. The speculum was removed from the vagina. ASSESSMENT AND PLAN: Vaginal bleeding, postoperative loop electrosurgical excision procedure (LEEP). Laboratory studies include a hemoglobin of 13.4, INR of 0.99, and she has received tranexamic acid 1000 mg. Additionally, she has had the LEEP base treated with silver nitrate and Monsel's solution with hemostasis apparent. She will be observed in the emergency room for 30 minutes. If no further bleeding is noted, she will be discharged to home. I would like to see her in close interval followup in the next 2 to 3 days. YEHUDA SAWYER /[id number]
== END 2018-12-11 21:50 | disposition home or self-care (01) ==
LOC: MW.ED 17:23
DX: N99.820 Postprocedural hemorrhage of a genitourinary system organ or structure following a genitourinary system procedure (principal); Z79.899 Other long term (current) drug therapy; R21 Rash and other nonspecific skin eruption
CPT/HCPCS: 36415; 57180; 76830; 80053; 81001; 81025; 85025; 85610; 85730; 86900; 86901; 96361; 96374; 96375; 99284; J2270; J2405; J7030; J7040

== ENCOUNTER 2024-12-03 21:58 | Emergency (ER) | payer SELFPAY ==
[2024-12-03] MEDS ORDERED: Sodium Chloride 0.9% 20 ML SDV IV PRN (22:11)
[2024-12-03] MEDS ORDERED: Sodium Chloride 0.9% 10 ML Syringe FLUSH PRN (22:11)
[2024-12-03] MEDS ORDERED: Sodium Chloride 0.9% 2.5 ML Syringe FLUSH PRN (22:11)
[2024-12-03] MEDS: Ketorolac 30 MG/ML SDV IVPUSH ONE (22:53)
[2024-12-03] MEDS: Cyclobenzaprine 10 MG Tab PO ONE (22:54)
[2024-12-03 23:00] LABS: BASOPHILS ABSOLUTE AUTO 0.07 K/uL (0.00-0.20); BASOPHILS PERCENT AUTO 1.1 % (0.0-1.0); EOSINOPHILS ABSOLUTE AUTO 0.23 K/uL (0.00-0.45); EOSINOPHILS PERCENT AUTO 3.5 % (0.0-6.0); HEMATOCRIT 37.7 % (37.0-47.0); IMMATURE GRAN ABSOLUTE AUTO 0.02 K/uL (0.00-0.05); IMMATURE GRAN PERCENT AUTO 0.3 % (0.0-0.4); LYMPHOCYTES ABSOLUTE AUTO 1.71 K/uL (1.00-4.80); LYMPHOCYTES PERCENT AUTO 25.9 % (24.0-44.0); MEAN CORPUSCULAR HEMOGLOBIN 31.9 pg (28.0-32.0); MEAN CORPUSCULAR HGB CONC 34.5 g/dL (32.0-36.0); MEAN CORPUSCULAR VOLUME 92.6 fL (83.0-99.0); MEAN PLATELET VOLUME 9.4 fL (9.4-12.3); MONOCYTES ABSOLUTE AUTO 0.71 K/uL (0.00-0.80); MONOCYTES PERCENT AUTO 10.8 % (0.0-8.0); NEUTROPHILS ABSOLUTE AUTO 3.85 K/uL (1.80-7.70); NEUTROPHILS PERCENT AUTO 58.4 % (41.0-71.0); PLATELET COUNT,PLT 335 K/uL (150-400); RED BLOOD CELL COUNT 4.07 M/uL (4.10-5.30); WHITE BLOOD CELL COUNT,WBC 6.59 K/uL (3.9-11.3)
[2024-12-03 23:13] LABS: INR < 0.93 (0.86-1.11); PTT,PARTIAL THROMBOPLSTIN TIME 24.8 SEC (23.9-30.7)
[2024-12-03 23:24] LABS: ALBUMIN 3.9 g/dL (3.4-5.0); BILIRUBIN TOTAL 0.3 mg/dL (0.2-1.0); CALCIUM 8.7 mg/dL (8.5-10.1); CARBON DIOXIDE,CO2 22.2 mmol/L (21.0-32.0); EST CRCL DRUG DOSING (CG) 79.72 mL/min; POTASSIUM,K 3.3 mmol/L (3.5-5.1); PROTEIN TOTAL,TP 7.8 g/dL (6.4-8.2)
[2024-12-03 23:34] LABS: APPEARANCE,URINE CLEAR; BILIRUBIN,URINE NEGATIVE (NEGATIVE); COLOR,URINE YELLOW; GLUCOSE,URINE NEGATIVE (NEGATIVE); KETONES,URINE 15 mg/dL (NEGATIVE); LEUKOCYTE ESTERASE,URINE NEGATIVE (NEGATIVE); NITRITE,URINE NEGATIVE (NEGATIVE); OCCULT BLOOD,URINE NEGATIVE (NEGATIVE); PROTEIN,URINE 100 mg/dL (NEGATIVE); UROBILINOGEN,URINE 0.2 EU/dL (<2.0)
[2024-12-03 23:40] LABS: BACTERIA,URINE FEW (NEGATIVE); CALCIUM OXALATE CRYSTALS,URINE FEW (NEGATIVE); HYALINE CASTS,URINE 0-1 (0-2/LPF); MUCUS,URINE MODERATE (NONE-MOD); RBC,URINE 0-3 (0-2/HPF); SQUAMOUS EPITHELIAL CELLS,UR FEW; WBC,URINE 0-2 (0-5/HPF)
[2024-12-03 23:44] LABS: AMPHETAMINES SCREEN, URINE PRESUMPTIVE POSITIVE (CUTOFF=500); BARBITURATE SCREEN,URINE NEGATIVE (CUTOFF=200); BENZODIAZEPINES SCREEN,URINE NEGATIVE (CUTOFF=150); BUPRENORPHINE SCREEN,URINE NEGATIVE (CUTOFF=10); METHADONE SCREEN, URINE NEGATIVE (CUTOFF=200); METHAMPHETAMINES SCREEN, URINE NEGATIVE (CUTOFF=500); OXYCODONE SCREEN,URINE NEGATIVE (CUT0FF=100); PCP SCREEN,URINE NEGATIVE (CUTOFF=25); THC SCREEN,URINE 20 NG/ML PRESUMPTIVE POSITIVE (CUTOFF=50)
== END 2024-12-04 | disposition home or self-care (01) ==
LOC: MW.ED 21:58
DX: S20.213A Contusion of bilateral front wall of thorax, initial encounter (principal); S40.812A Abrasion of left upper arm, initial encounter; S40.811A Abrasion of right upper arm, initial encounter; S80.812A Abrasion, left lower leg, initial encounter; S80.811A Abrasion, right lower leg, initial encounter; F41.9 Anxiety disorder, unspecified; F10.129 Alcohol abuse with intoxication, unspecified; Z79.899 Other long term (current) drug therapy; Z90.49 Acquired absence of other specified parts of digestive tract; V86.99XA Unspecified occupant of other special all-terrain or other off-road motor vehicle injured in nontraffic accident, initial encounter
CPT/HCPCS: 36415; 71111; 80053; 80305; 80307; 81001; 81025; 83690; 84484; 85025; 85610; 85730; 93005; 96374; 99284; A9270; J1885; 93010

== ENCOUNTER 2025-01-02 16:02 | Inpatient (IN) | payer OTHER ==
[2025-01-02] MEDS: Dicyclomine 10 MG Cap PO ONE (17:27)
[2025-01-02] MEDS: Sodium Chloride 0.9% 1,000 ML IV ONE ×2 (17:28→20:11)
[2025-01-02 17:34] LABS: HEMATOCRIT 33.7 % (37.0-47.0); HEMOGLOBIN 10.9 g/dL (12.0-16.0); MEAN CORPUSCULAR HEMOGLOBIN 31.4 pg (28.0-32.0); MEAN CORPUSCULAR HGB CONC 32.3 g/dL (32.0-36.0); MEAN CORPUSCULAR VOLUME 97.1 fL (83.0-99.0); MEAN PLATELET VOLUME 9.6 fL (9.4-12.3); PLATELET COUNT,PLT 751 K/uL (150-400); RED BLOOD CELL COUNT 3.47 M/uL (4.10-5.30)
[2025-01-02 17:45] LABS: APPEARANCE,URINE CLOUDY; BILIRUBIN,URINE NEGATIVE (NEGATIVE); COLOR,URINE YELLOW; GLUCOSE,URINE NEGATIVE (NEGATIVE); KETONES,URINE NEGATIVE (NEGATIVE); LEUKOCYTE ESTERASE,URINE MODERATE (NEGATIVE); NITRITE,URINE NEGATIVE (NEGATIVE); OCCULT BLOOD,URINE LARGE (NEGATIVE); PH,URINE 5.5 (5.0-8.0); PROTEIN,URINE 100 mg/dL (NEGATIVE); UROBILINOGEN,URINE 0.2 EU/dL (<2.0)
[2025-01-02 17:48] LABS: INR 1.17 (0.86-1.11)
[2025-01-02 17:55] LABS: AMPHETAMINES SCREEN, URINE PRESUMPTIVE POSITIVE (CUTOFF=500); BARBITURATE SCREEN,URINE NEGATIVE (CUTOFF=200); BENZODIAZEPINES SCREEN,URINE NEGATIVE (CUTOFF=150); BUPRENORPHINE SCREEN,URINE NEGATIVE (CUTOFF=10); METHADONE SCREEN, URINE NEGATIVE (CUTOFF=200); METHAMPHETAMINES SCREEN, URINE NEGATIVE (CUTOFF=500); OXYCODONE SCREEN,URINE NEGATIVE (CUT0FF=100); PCP SCREEN,URINE NEGATIVE (CUTOFF=25); THC SCREEN,URINE 20 NG/ML PRESUMPTIVE POSITIVE (CUTOFF=50)
[2025-01-02 17:57] LABS: BACTERIA,URINE 3+ (NEGATIVE); EPITHELIAL CELLS,URINE RARE (NONE-FEW); FINE GRANULAR CASTS,URINE FEW (NEGATIVE); WBC,URINE TOO NUMEROUS TO CT (0-5/HPF)
[2025-01-02 17:58] LABS: WHITE BLOOD CELL COUNT,WBC 40.63 K/uL (3.9-11.3)
[2025-01-02 18:04] LABS: LYMPHOCYTES ABSOLUTE MAN 2.03 K/uL (1.00-4.80); LYMPHOCYTES PERCENT MAN 5 % (24-44)
[2025-01-02 18:06] LABS: A/G RATIO 0.4 (0.9-1.6); ALANINE AMINOTRANSFERASE,ALT 7 IU/L (14-63); ALBUMIN 2.2 g/dL (3.4-5.0); ALKALINE PHOSPHATASE 201 U/L (46-116); ASPARTATE AMNIOTRANSFERASE,AST 11 IU/L (15-37); BILIRUBIN TOTAL 1.6 mg/dL (0.2-1.0); BLOOD UREA NITROGEN,BUN 45 mg/dL (7.0-18.0); CARBON DIOXIDE,CO2 13.7 mmol/L (21.0-32.0); CHLORIDE,CL 94 mmol/L (98-107); CREATININE 1.9 mg/dL (0.6-1.0); EST CRCL DRUG DOSING (CG) 41.96 mL/min; ETHANOL BLOOD MEDICAL <3 mg/dL; GLUCOSE RANDOM 92 mg/dL (74-106); LIPASE 51 U/L (16-77); MAGNESIUM 1.6 mg/dL (1.8-2.4); PROTEIN TOTAL,TP 7.5 g/dL (6.4-8.2); SODIUM,NA 127 mmol/L (136-145)
[2025-01-02 18:07] LABS: MONOCYTES ABSOLUTE MAN 1.63 K/uL (0.00-0.80); MONOCYTES PERCENT MAN 4 % (0-8); SEG NEUTROPHILS ABSOLUTE MAN 36.97 K/uL (1.80-7.70); SEG NEUTROPHILS PERCENT MAN 91 % (41-71)
[2025-01-02 18:10] LABS: ESTIMATED GFR 34 mL/min (>60)
[2025-01-02] MEDS: cefTRIAXone 1 GM in Water For Injection, Sterile 10 ML IVPUSH ONE (18:26)
[2025-01-02] MEDS: Iopamidol 755 MG/ML 500 ML Multipack Bottle IVPUSH STA (19:05)
[2025-01-02 19:18] LABS: LACTIC ACID 0.9 mmol/L (0.4-2.0)
[2025-01-02] MEDS: Magnesium Sulfate 2 GM/50 mL 2 GM in Premix Bag 1 BAG IV ONE (20:11)
[2025-01-02] MEDS: Ketorolac 30 MG/ML SDV IVPUSH ONE (20:15)
[2025-01-02] MEDS: Morphine 4 MG/ML Syringe IVPUSH ONE (20:57)
[2025-01-02] MEDS ORDERED: Naloxone 0.4 MG/ML SDV IVPUSH PRN (23:36)
[2025-01-02] MEDS: Morphine 4 MG/ML Syringe IVPUSH PRN (23:48)
[2025-01-03] MEDS: Sodium Chloride 0.9% 1,000 ML IV SCH (01:01)
[2025-01-03] MEDS ORDERED: LORazepam 2 MG/ML SDV IVPUSH PRN (01:22)
[2025-01-03] MEDS: Thiamine 200 MG/2 ML MDV IVPUSH SCH (02:12)
[2025-01-03] MEDS: Folic Acid 1 MG Tab PO SCH (02:12)
[2025-01-03] MEDS: Heparin Sodium 5,000 Units/ML Vial SUBCUT SCH (02:12)
[2025-01-03] MEDS ORDERED: Piperacillin/Tazobactam 3.375 GM in Sodium Chloride 0.9% 100 ML IV SCH (05:45)
[2025-01-03 05:54] LABS: HEMATOCRIT 27.8 % (37.0-47.0); HEMOGLOBIN 8.7 g/dL (12.0-16.0); MEAN CORPUSCULAR HEMOGLOBIN 30.7 pg (28.0-32.0); MEAN CORPUSCULAR HGB CONC 31.3 g/dL (32.0-36.0); MEAN CORPUSCULAR VOLUME 98.2 fL (83.0-99.0); MEAN PLATELET VOLUME 9.9 fL (9.4-12.3); PLATELET COUNT,PLT 585 K/uL (150-400); RED BLOOD CELL COUNT 2.83 M/uL (4.10-5.30)
[2025-01-03] MEDS: Piperacillin/Tazobactam 4.5 GM in Sodium Chloride 0.9% 100 ML IV ONE (05:54)
[2025-01-03 06:21] LABS: A/G RATIO 0.4 (0.9-1.6); ALBUMIN 1.6 g/dL (3.4-5.0); BILIRUBIN TOTAL 0.5 mg/dL (0.2-1.0); CARBON DIOXIDE,CO2 11.2 mmol/L (21.0-32.0); CREATININE 1.5 mg/dL (0.6-1.0); EST CRCL DRUG DOSING (CG) 54.99 mL/min; PHOSPHORUS 3.3 mg/dL (2.6-4.7); POTASSIUM,K 3.9 mmol/L (3.5-5.1); PROTEIN TOTAL,TP 5.9 g/dL (6.4-8.2)
[2025-01-03 07:07] LABS: BAND ABSOLUTE MAN 1.71; BAND PERCENT MAN 4 %; LYMPHOCYTES ABSOLUTE MAN 1.71 K/uL (1.00-4.80); LYMPHOCYTES PERCENT MAN 4 % (24-44); MONOCYTES ABSOLUTE MAN 1.71 K/uL (0.00-0.80); MONOCYTES PERCENT MAN 4 % (0-8); MYELOCYTE ABSOLUTE MAN 0.43; MYELOCYTE PERCENT MAN 1 %; SEG NEUTROPHILS ABSOLUTE MAN 37.15 K/uL (1.80-7.70); SEG NEUTROPHILS PERCENT MAN 87 % (41-71)
[2025-01-03] MEDS: Piperacillin/Tazobactam 4.5 GM in Sodium Chloride 0.9% 100 ML IV SCH (09:23)
[2025-01-03] MEDS: HYDROmorphone 1 MG/ML Syringe IVPUSH PRN (09:23)
[2025-01-03] MEDS ORDERED: Piperacillin/Tazobactam 4.5 GM in Sodium Chloride 0.9% 100 ML IV SCH (10:00)
[2025-01-03] MEDS: Phenol 1.4% Oral Spray 177 ML Bottle MUCMEM PRN (10:31)
[2025-01-03] MEDS: Sodium Chloride 0.9% 1,000 ML IV ONE (10:32)
[2025-01-03] MEDS ORDERED: Acetaminophen 325 MG Tab PO PRN (16:31)
[2025-01-03] MEDS: Acetaminophen 325 MG Tab PO PRN (16:39)
[2025-01-03] MEDS ORDERED: cefTRIAXone 2 GM in Water For Injection, Sterile 20 ML IVPUSH SCH (18:00)
[2025-01-03 22:51] LABS: HEMATOCRIT 24.5 % (37.0-47.0); HEMOGLOBIN 7.8 g/dL (12.0-16.0); MEAN CORPUSCULAR HEMOGLOBIN 31.5 pg (28.0-32.0); MEAN CORPUSCULAR HGB CONC 31.8 g/dL (32.0-36.0); MEAN CORPUSCULAR VOLUME 98.8 fL (83.0-99.0); MEAN PLATELET VOLUME 9.3 fL (9.4-12.3); PLATELET COUNT,PLT 755 K/uL (150-400); RED BLOOD CELL COUNT 2.48 M/uL (4.10-5.30)
[2025-01-03 22:52] LABS: WHITE BLOOD CELL COUNT,WBC 34.87 K/uL (3.9-11.3)
[2025-01-03 23:12] LABS: BAND ABSOLUTE MAN 0.35; BAND PERCENT MAN 1 %; LYMPHOCYTES ABSOLUTE MAN 1.74 K/uL (1.00-4.80); LYMPHOCYTES PERCENT MAN 5 % (24-44); MONOCYTES ABSOLUTE MAN 1.39 K/uL (0.00-0.80); MONOCYTES PERCENT MAN 4 % (0-8); MYELOCYTE PERCENT MAN 2 %; SEG NEUTROPHILS ABSOLUTE MAN 30.69 K/uL (1.80-7.70); SEG NEUTROPHILS PERCENT MAN 88 % (41-71)
[2025-01-04 05:51] LABS: HEMATOCRIT 24.1 % (37.0-47.0); HEMOGLOBIN 7.7 g/dL (12.0-16.0); MEAN CORPUSCULAR HEMOGLOBIN 31.8 pg (28.0-32.0); MEAN CORPUSCULAR VOLUME 99.6 fL (83.0-99.0); MEAN PLATELET VOLUME 9.6 fL (9.4-12.3); PLATELET COUNT,PLT 766 K/uL (150-400); RED BLOOD CELL COUNT 2.42 M/uL (4.10-5.30)
[2025-01-04 06:13] LABS: A/G RATIO 0.3 (0.9-1.6); ALBUMIN 1.2 g/dL (3.4-5.0); ALKALINE PHOSPHATASE 151 U/L (46-116); ASPARTATE AMNIOTRANSFERASE,AST 6 IU/L (15-37); BILIRUBIN TOTAL 0.3 mg/dL (0.2-1.0); BLOOD UREA NITROGEN,BUN 15 mg/dL (7.0-18.0); CALCIUM 7.8 mg/dL (8.5-10.1); CARBON DIOXIDE,CO2 11.1 mmol/L (21.0-32.0); CHLORIDE,CL 107 mmol/L (98-107); CREATININE 1.2 mg/dL (0.6-1.0); EST CRCL DRUG DOSING (CG) 68.74 mL/min; GLUCOSE RANDOM 86 mg/dL (74-106); MAGNESIUM 1.5 mg/dL (1.8-2.4); PHOSPHORUS 2.6 mg/dL (2.6-4.7); POTASSIUM,K 3.3 mmol/L (3.5-5.1); PROTEIN TOTAL,TP 5.3 g/dL (6.4-8.2); SODIUM,NA 137 mmol/L (136-145)
[2025-01-04 06:15] LABS: ESTIMATED GFR 59 mL/min (>60)
[2025-01-04 06:16] LABS: ALANINE AMINOTRANSFERASE,ALT <6 IU/L (14-63)
[2025-01-04 06:58] LABS: BAND ABSOLUTE MAN 0.64; BAND PERCENT MAN 2 %; LYMPHOCYTES ABSOLUTE MAN 2.25 K/uL (1.00-4.80); LYMPHOCYTES PERCENT MAN 7 % (24-44); METAMYELOCYTE ABSOLUTE MAN 0.32; METAMYELOCYTE PERCENT MAN 1 %; MONOCYTES ABSOLUTE MAN 1.61 K/uL (0.00-0.80); MONOCYTES PERCENT MAN 5 % (0-8); SEG NEUTROPHILS ABSOLUTE MAN 27.29 K/uL (1.80-7.70); SEG NEUTROPHILS PERCENT MAN 85 % (41-71)
[2025-01-04] MEDS: Magnesium Sulfate 4 GM/100 mL 4 GM in Premix Bag 1 BAG IV ONE (09:27)
[2025-01-04] MEDS: Potassium Chloride 20 MEQ Tab.ER PO SCH (09:28)
[2025-01-04] MEDS: Loperamide 2 MG Cap PO PRN (20:01)
[2025-01-05 05:54] LABS: HEMATOCRIT 21.8 % (37.0-47.0); HEMOGLOBIN 6.9 g/dL (12.0-16.0); MEAN CORPUSCULAR HEMOGLOBIN 31.4 pg (28.0-32.0); MEAN CORPUSCULAR HGB CONC 31.7 g/dL (32.0-36.0); MEAN CORPUSCULAR VOLUME 99.1 fL (83.0-99.0); MEAN PLATELET VOLUME 9.4 fL (9.4-12.3); PLATELET COUNT,PLT 904 K/uL (150-400); WHITE BLOOD CELL COUNT,WBC 26.36 K/uL (3.9-11.3)
[2025-01-05 06:28] LABS: BAND ABSOLUTE MAN 0.26; BAND PERCENT MAN 1 %; LYMPHOCYTES ABSOLUTE MAN 1.85 K/uL (1.00-4.80); LYMPHOCYTES PERCENT MAN 7 % (24-44); MONOCYTES ABSOLUTE MAN 1.85 K/uL (0.00-0.80); MONOCYTES PERCENT MAN 7 % (0-8); SEG NEUTROPHILS ABSOLUTE MAN 21.62 K/uL (1.80-7.70); SEG NEUTROPHILS PERCENT MAN 82 % (41-71)
[2025-01-05 06:29] LABS: METAMYELOCYTE ABSOLUTE MAN 0.26; METAMYELOCYTE PERCENT MAN 1 %; MYELOCYTE ABSOLUTE MAN 0.53; MYELOCYTE PERCENT MAN 2 %
[2025-01-05 06:35] LABS: A/G RATIO 0.3 (0.9-1.6); ALBUMIN 1.2 g/dL (3.4-5.0); BILIRUBIN TOTAL 0.2 mg/dL (0.2-1.0); CALCIUM 7.6 mg/dL (8.5-10.1); CARBON DIOXIDE,CO2 13.4 mmol/L (21.0-32.0); CREATININE 0.9 mg/dL (0.6-1.0); EST CRCL DRUG DOSING (CG) 91.65 mL/min; MAGNESIUM 1.7 mg/dL (1.8-2.4); PHOSPHORUS 1.9 mg/dL (2.6-4.7); POTASSIUM,K 3.8 mmol/L (3.5-5.1); PROTEIN TOTAL,TP 5.1 g/dL (6.4-8.2)
[2025-01-05] MEDS: Phosphorus #1 250 MG Tab PO SCH (08:41)
[2025-01-05] MEDS: Magnesium Sulfate 4 GM/100 mL 4 GM in Premix Bag 1 BAG IV ONE (08:42)
[2025-01-05] MEDS ORDERED: Ondansetron 4 MG/2 ML SDV IVPUSH PRN (09:07)
[2025-01-05] MEDS ORDERED: [UNRECOGNIZED DRUG - OTHER] PO SCH (09:15)
[2025-01-05 09:35] LABS: IMMATURE RETIC FRACTION 18.4 %; RED BLOOD CELL COUNT 2.23 M/uL (4.10-5.30); RETICULOCYTE ABSOLUTE 0.0167 K/uL (0.02-0.11); RETICULOCYTE COUNT PERCENT 0.75 % (0.5-2.0)
[2025-01-05 09:39] LABS: PERCENT FE SATURATION 8.59 % (20-55); TRANSFERRIN 89.6
[2025-01-05] MEDS: Pantoprazole 40 MG in Sodium Chloride 0.9% 10 ML IVPUSH SCH (10:19)
[2025-01-05] MEDS: buPROPion 150 MG Tab.ER PO SCH (10:25)
[2025-01-05] MEDS: Venlafaxine 75 MG Cap.ER PO SCH (10:25)
[2025-01-05] MEDS: LISDEXAMFETAMINE DIMESYLATE 70 MG PO SCH (10:26)
[2025-01-05] MEDS: Benzocaine/Cetylpyridinium/Menthol Lozenge MUCMEM PRN (11:28)
[2025-01-05] MEDS: Sodium Ferric Gluconate Cmplex 125 MG in Sodium Chloride 0.9% 100 ML IV ONE (16:39)
[2025-01-05 16:45] LABS: HEMATOCRIT 23.3 % (37.0-47.0); HEMOGLOBIN 7.7 g/dL (12.0-16.0)
[2025-01-05] MEDS ORDERED: Piperacillin/Tazobactam 4.5 GM in Sodium Chloride 0.9% 100 ML IV SCH (17:00)
[2025-01-05] MEDS: Sucralfate Suspension 1 GM/10 ML Cup PO SCH (17:55)
[2025-01-05] MEDS: cefTRIAXone 2 GM in Water For Injection, Sterile 20 ML IVPUSH SCH (17:55)
[2025-01-06 05:51] LABS: HEMATOCRIT 24.1 % (37.0-47.0); HEMOGLOBIN 7.8 g/dL (12.0-16.0); MEAN CORPUSCULAR HEMOGLOBIN 31.1 pg (28.0-32.0); MEAN CORPUSCULAR HGB CONC 32.4 g/dL (32.0-36.0); MEAN PLATELET VOLUME 9.4 fL (9.4-12.3); PLATELET COUNT,PLT 934 K/uL (150-400); RED BLOOD CELL COUNT 2.51 M/uL (4.10-5.30); WHITE BLOOD CELL COUNT,WBC 23.35 K/uL (3.9-11.3)
[2025-01-06 06:18] LABS: A/G RATIO 0.4 (0.9-1.6); ALBUMIN 1.4 g/dL (3.4-5.0); BILIRUBIN TOTAL 0.2 mg/dL (0.2-1.0); CALCIUM 7.8 mg/dL (8.5-10.1); CARBON DIOXIDE,CO2 16.7 mmol/L (21.0-32.0); CREATININE 0.8 mg/dL (0.6-1.0); EST CRCL DRUG DOSING (CG) 103.11 mL/min; MAGNESIUM 1.6 mg/dL (1.8-2.4); PHOSPHORUS 2.5 mg/dL (2.6-4.7); POTASSIUM,K 3.4 mmol/L (3.5-5.1); PROTEIN TOTAL,TP 5.3 g/dL (6.4-8.2)
[2025-01-06 07:02] LABS: BASOPHILS PERCENT MAN 0 % (0-1); EOSINOPHILS PERCENT MAN 0 % (0-6); LYMPHOCYTES ABSOLUTE MAN 1.17 K/uL (1.00-4.80); LYMPHOCYTES PERCENT MAN 5 % (24-44); MONOCYTES ABSOLUTE MAN 2.57 K/uL (0.00-0.80); MONOCYTES PERCENT MAN 11 % (0-8); SEG NEUTROPHILS ABSOLUTE MAN 19.61 K/uL (1.80-7.70); SEG NEUTROPHILS PERCENT MAN 84 % (41-71)
[2025-01-06] MEDS: Potassium Chloride 20 MEQ Tab.ER PO ONE (09:32)
[2025-01-06] MEDS: Magnesium Sulfate 2 GM/50 mL 2 GM in Premix Bag 1 BAG IV ONE (09:32)
[2025-01-06] MEDS: Phosphorus #1 250 MG Tab PO SCH (09:34)
[2025-01-06] MEDS: Ertapenem 1 GM in Sodium Chloride 0.9% 50 ML IV SCH (10:45)
[2025-01-07 05:58] LABS: BASOPHILS ABSOLUTE AUTO 0.13 K/uL (0.00-0.20); BASOPHILS PERCENT AUTO 0.6 % (0.0-1.0); EOSINOPHILS PERCENT AUTO 0.9 % (0.0-6.0); HEMATOCRIT 22.5 % (37.0-47.0); HEMOGLOBIN 7.5 g/dL (12.0-16.0); IMMATURE GRAN ABSOLUTE AUTO 1.43 K/uL (0.00-0.05); IMMATURE GRAN PERCENT AUTO 6.7 % (0.0-0.4); LYMPHOCYTES ABSOLUTE AUTO 1.51 K/uL (1.00-4.80); LYMPHOCYTES PERCENT AUTO 7.1 % (24.0-44.0); MEAN CORPUSCULAR HEMOGLOBIN 31.8 pg (28.0-32.0); MEAN CORPUSCULAR HGB CONC 33.3 g/dL (32.0-36.0); MEAN CORPUSCULAR VOLUME 95.3 fL (83.0-99.0); MEAN PLATELET VOLUME 9.1 fL (9.4-12.3); MONOCYTES ABSOLUTE AUTO 1.79 K/uL (0.00-0.80); MONOCYTES PERCENT AUTO 8.4 % (0.0-8.0); NEUTROPHILS ABSOLUTE AUTO 16.22 K/uL (1.80-7.70); NEUTROPHILS PERCENT AUTO 76.3 % (41.0-71.0); PLATELET COUNT,PLT 990 K/uL (150-400); RED BLOOD CELL COUNT 2.36 M/uL (4.10-5.30); WHITE BLOOD CELL COUNT,WBC 21.28 K/uL (3.9-11.3)
[2025-01-07 06:18] LABS: A/G RATIO 0.4 (0.9-1.6); ALBUMIN 1.4 g/dL (3.4-5.0); BILIRUBIN TOTAL 0.2 mg/dL (0.2-1.0); CALCIUM 7.7 mg/dL (8.5-10.1); CARBON DIOXIDE,CO2 18.6 mmol/L (21.0-32.0); CREATININE 0.8 mg/dL (0.6-1.0); EST CRCL DRUG DOSING (CG) 103.11 mL/min; MAGNESIUM 1.4 mg/dL (1.8-2.4); PHOSPHORUS 3.6 mg/dL (2.6-4.7); POTASSIUM,K 2.9 mmol/L (3.5-5.1); PROTEIN TOTAL,TP 5.2 g/dL (6.4-8.2)
[2025-01-07] MEDS ORDERED: Magnesium Sulfate/Water 2 GM/50 ML Premix Bag IV ONE (08:55)
[2025-01-07] MEDS: Potassium Chloride 20 MEQ Tab.ER PO ONE (09:29)
[2025-01-07] MEDS: Magnesium Sulfate 2 GM/50 mL 2 GM in Premix Bag 1 BAG IV ONE (09:32)
[2025-01-07] MEDS: NS with KCl 40mEq 1,000 ML IV SCH (10:17)
[2025-01-07] MEDS: oxyCODONE 5 MG Tab PO PRN (19:00)
[2025-01-08 06:03] LABS: HEMATOCRIT 20.5 % (37.0-47.0); HEMOGLOBIN 6.8 g/dL (12.0-16.0); MEAN CORPUSCULAR HEMOGLOBIN 31.6 pg (28.0-32.0); MEAN CORPUSCULAR HGB CONC 33.2 g/dL (32.0-36.0); MEAN CORPUSCULAR VOLUME 95.3 fL (83.0-99.0); MEAN PLATELET VOLUME 8.5 fL (9.4-12.3); PLATELET COUNT,PLT 908 K/uL (150-400); RED BLOOD CELL COUNT 2.15 M/uL (4.10-5.30); WHITE BLOOD CELL COUNT,WBC 14.57 K/uL (3.9-11.3)
[2025-01-08 06:25] LABS: A/G RATIO 0.4 (0.9-1.6); ALBUMIN 1.2 g/dL (3.4-5.0); BILIRUBIN TOTAL 0.1 mg/dL (0.2-1.0); CALCIUM 7.8 mg/dL (8.5-10.1); CARBON DIOXIDE,CO2 23.1 mmol/L (21.0-32.0); CREATININE 0.9 mg/dL (0.6-1.0); EST CRCL DRUG DOSING (CG) 91.65 mL/min; MAGNESIUM 1.6 mg/dL (1.8-2.4); PHOSPHORUS 3.2 mg/dL (2.6-4.7); POTASSIUM,K 3.5 mmol/L (3.5-5.1); PROTEIN TOTAL,TP 4.5 g/dL (6.4-8.2)
[2025-01-08 07:11] LABS: BASOPHILS PERCENT MAN 0 % (0-1); EOSINOPHILS ABSOLUTE MAN 0.15 K/uL (0.00-0.45); EOSINOPHILS PERCENT MAN 1 % (0-6); LYMPHOCYTES ABSOLUTE MAN 2.48 K/uL (1.00-4.80); LYMPHOCYTES PERCENT MAN 17 % (24-44); MONOCYTES ABSOLUTE MAN 1.75 K/uL (0.00-0.80); MONOCYTES PERCENT MAN 12 % (0-8); SEG NEUTROPHILS PERCENT MAN 70 % (41-71)
[2025-01-08] MEDS: Potassium Chloride 20 MEQ Tab.ER PO ONE (09:25)
[2025-01-08] MEDS: Magnesium Sulfate 4 GM/100 mL 4 GM in Premix Bag 1 BAG IV ONE (09:26)
[2025-01-08] MEDS: Sodium Ferric Gluconate Cmplex 125 MG in Sodium Chloride 0.9% 100 ML IV SCH (10:59)
[2025-01-08] MEDS: oxyCODONE 5 MG Tab PO PRN (11:35)
[2025-01-08] MEDS: Simethicone 80 MG Tab.Chew PO PRN (17:26)
[2025-01-09 06:13] LABS: HEMATOCRIT 23.4 % (37.0-47.0); HEMOGLOBIN 7.8 g/dL (12.0-16.0); MEAN CORPUSCULAR HGB CONC 33.3 g/dL (32.0-36.0); MEAN CORPUSCULAR VOLUME 92.9 fL (83.0-99.0); MEAN PLATELET VOLUME 8.7 fL (9.4-12.3); PLATELET COUNT,PLT 866 K/uL (150-400); RED BLOOD CELL COUNT 2.52 M/uL (4.10-5.30); WHITE BLOOD CELL COUNT,WBC 11.19 K/uL (3.9-11.3)
[2025-01-09 06:37] LABS: BAND ABSOLUTE MAN 0.22; BAND PERCENT MAN 2 %; BASOPHILS ABSOLUTE MAN 0.11 K/uL (0.00-0.20); BASOPHILS PERCENT MAN 1 % (0-1); EOSINOPHILS ABSOLUTE MAN 0.34 K/uL (0.00-0.45); EOSINOPHILS PERCENT MAN 3 % (0-6); LYMPHOCYTES ABSOLUTE MAN 2.13 K/uL (1.00-4.80); LYMPHOCYTES PERCENT MAN 19 % (24-44); METAMYELOCYTE ABSOLUTE MAN 0.34; METAMYELOCYTE PERCENT MAN 3 %; MONOCYTES ABSOLUTE MAN 0.56 K/uL (0.00-0.80); MONOCYTES PERCENT MAN 5 % (0-8); SEG NEUTROPHILS ABSOLUTE MAN 7.27 K/uL (1.80-7.70); SEG NEUTROPHILS PERCENT MAN 65 % (41-71)
[2025-01-09 06:38] LABS: MYELOCYTE ABSOLUTE MAN 0.22; MYELOCYTE PERCENT MAN 2 %
[2025-01-09 06:41] LABS: CARBON DIOXIDE,CO2 20.6 mmol/L (21.0-32.0); EST CRCL DRUG DOSING (CG) 82.48 mL/min; MAGNESIUM 1.8 mg/dL (1.8-2.4); PHOSPHORUS 3.2 mg/dL (2.6-4.7); POTASSIUM,K 3.3 mmol/L (3.5-5.1)
[2025-01-09] MEDS: buPROPion 150 MG Tab.ER PO SCH (08:47)
[2025-01-09] MEDS: Potassium Chloride 20 MEQ Tab.ER PO ONE ×2 (08:47→11:17)
[2025-01-09] MEDS: Thiamine 100 MG Tab PO SCH (08:47)
[2025-01-09] MEDS: HYDROmorphone 1 MG/ML Syringe IVPUSH PRN (15:20)
[2025-01-09] MEDS: Polyethylene Glycol/Electrolytes 4,000 ML Bottle PO ONE (17:05)
[2025-01-10 06:32] LABS: BASOPHILS ABSOLUTE AUTO 0.14 K/uL (0.00-0.20); BASOPHILS PERCENT AUTO 1.3 % (0.0-1.0); EOSINOPHILS ABSOLUTE AUTO 0.29 K/uL (0.00-0.45); EOSINOPHILS PERCENT AUTO 2.7 % (0.0-6.0); HEMATOCRIT 25.3 % (37.0-47.0); HEMOGLOBIN 8.3 g/dL (12.0-16.0); IMMATURE GRAN ABSOLUTE AUTO 0.36 K/uL (0.00-0.05); IMMATURE GRAN PERCENT AUTO 3.4 % (0.0-0.4); LYMPHOCYTES ABSOLUTE AUTO 1.69 K/uL (1.00-4.80); LYMPHOCYTES PERCENT AUTO 15.9 % (24.0-44.0); MEAN CORPUSCULAR HEMOGLOBIN 31.1 pg (28.0-32.0); MEAN CORPUSCULAR HGB CONC 32.8 g/dL (32.0-36.0); MEAN CORPUSCULAR VOLUME 94.8 fL (83.0-99.0); MEAN PLATELET VOLUME 9.3 fL (9.4-12.3); MONOCYTES ABSOLUTE AUTO 0.94 K/uL (0.00-0.80); MONOCYTES PERCENT AUTO 8.9 % (0.0-8.0); NEUTROPHILS ABSOLUTE AUTO 7.19 K/uL (1.80-7.70); NEUTROPHILS PERCENT AUTO 67.8 % (41.0-71.0); PLATELET COUNT,PLT 871 K/uL (150-400); RED BLOOD CELL COUNT 2.67 M/uL (4.10-5.30); WHITE BLOOD CELL COUNT,WBC 10.61 K/uL (3.9-11.3)
[2025-01-10 06:52] LABS: CALCIUM 8.3 mg/dL (8.5-10.1); CARBON DIOXIDE,CO2 22.1 mmol/L (21.0-32.0); CREATININE 0.9 mg/dL (0.6-1.0); EST CRCL DRUG DOSING (CG) 91.65 mL/min; MAGNESIUM 1.6 mg/dL (1.8-2.4); PHOSPHORUS 3.2 mg/dL (2.6-4.7); POTASSIUM,K 3.7 mmol/L (3.5-5.1)
[2025-01-10] MEDS ORDERED: propofoL 500 MG/50 ML 50 ML ONE ×3 (09:26→10:30)
[2025-01-10] MEDS ORDERED: Lidocaine 2% 5 ML SDV ONE (10:01)
[2025-01-10] MEDS: Lisinopril 10 MG Tab PO ONE (17:42)
[2025-01-11] MEDS: SUMAtriptan 50 MG Tab PO PRN (09:00)
== END 2025-01-11 13:10 | disposition home or self-care (01) | DRG 872 ==
LOC: MW.ED 16:02 → MW.MS 20:22
PROVIDERS: ADMIT Internal Medicine; ATTEND Internal Medicine
PROC: 30233N1 Transfusion of Nonautologous Red Blood Cells into Peripheral Vein, Percutaneous Approach (ICD-10-PCS; principal; 2025-01-02)
PROC: 0DB98ZX Excision of Duodenum, Via Natural or Artificial Opening Endoscopic, Diagnostic (ICD-10-PCS; 2025-01-02)
PROC: 3E03329 Introduction of Other Anti-infective into Peripheral Vein, Percutaneous Approach (ICD-10-PCS; 2025-01-02)
PROC: 0DB68ZX Excision of Stomach, Via Natural or Artificial Opening Endoscopic, Diagnostic (ICD-10-PCS; 2025-01-02)
PROC: 0DB78ZX Excision of Stomach, Pylorus, Via Natural or Artificial Opening Endoscopic, Diagnostic (ICD-10-PCS; 2025-01-02)
PROC: 0DJD8ZZ Inspection of Lower Intestinal Tract, Via Natural or Artificial Opening Endoscopic (ICD-10-PCS; 2025-01-02)
DX: N17.9 Acute kidney failure, unspecified (principal); E87.1 Hypo-osmolality and hyponatremia; N12 Tubulo-interstitial nephritis, not specified as acute or chronic; A41.51 Sepsis due to Escherichia coli [E. coli]; N10 Acute pyelonephritis; Z75.3 Unavailability and inaccessibility of health-care facilities; N20.0 Calculus of kidney; F90.9 Attention-deficit hyperactivity disorder, unspecified type; F32.A Depression, unspecified; E86.0 Dehydration; F12.90 Cannabis use, unspecified, uncomplicated; K25.9 Gastric ulcer, unspecified as acute or chronic, without hemorrhage or perforation; K64.8 Other hemorrhoids; K26.9 Duodenal ulcer, unspecified as acute or chronic, without hemorrhage or perforation; K44.9 Diaphragmatic hernia without obstruction or gangrene; K29.70 Gastritis, unspecified, without bleeding; D50.8 Other iron deficiency anemias; F41.9 Anxiety disorder, unspecified; F10.10 Alcohol abuse, uncomplicated; E87.6 Hypokalemia; E83.42 Hypomagnesemia; Z90.49 Acquired absence of other specified parts of digestive tract; Z98.890 Other specified postprocedural states; Z79.899 Other long term (current) drug therapy
CPT/HCPCS: 36415; 74177; 80053; 80305; 80307; 81001; 81025; 83605; 83690; 83735; 85025; 85610; 85730; 87040 ×2; 87077 ×2; 87086; 87088; 87154; 87186 ×3; 87651; 96361; 96374; 96375; 99285; A9270; J0696; J1885; J3475; J7030 ×2; Q9967; 36430; 80048; 82272; 82607; 82728; 82746; 83010; 83550; 83615; 84100; 85014; 85018; 85045; 86850; 86900; 86901; 86920; 87045; 87046; 87324; 87338; 87449; 87899; 88305; 88342; 99222; 99231; 99232; 99239; 99284; J1171; J1335; J1644; J2003; J2270; J2470; J2543; J2704; J2916; J3411; J3480; P9016

== ENCOUNTER → 2025-05-02 | Day surgery (SDC) | payer OTHER ==
[2025-05-02] MEDS: Lactated Ringers 1,000 ML IV SCH (14:11)
== END | disposition home or self-care (01) ==
LOC: MW.SDS 13:03
PROVIDERS: ATTEND Surgery
DX: Z53.8 Procedure and treatment not carried out for other reasons (principal); Z88.8 Allergy status to other drugs, medicaments and biological substances; Z79.899 Other long term (current) drug therapy
CPT/HCPCS: 81025; J7120